=== PATIENT | female | born 1960 | race Caucasian/White ===

== ENCOUNTER 2016-04-06 05:39 | Outpatient (CLI) | payer MEDICARE, MEDICAID ==
[~2016-04-06] VITALS: Ht 157.5 cm; Wt 127.0 kg
[~2016-04-06 05:39] MED LIST: ACHD5005 PO; ALBU8.5H2 IH; ALPR0.5T7 PO; ALPR0.5T72 PO; ASP81TEC PO; CEPH500C PO; CYCL10TA9 PO; DICY10CA59 PO; DILT360C30 PO; DILT90TA PO; DIPH25TA82 PO; DOXE25CA2 PO; DULO30CA PO; ESCT10T PO; ESTR1TAB24 PO; ETAN50DI2 SQ; ETANERCEPT SQ; FAMC125T2 PO; FENO135C PO; FEXO180T84 PO; FISH1CAP15 PO; FLUC200T31 PO; FLUO1TAB PO; FLUT30CR10 TP; GABA-488 PO; GLIP10TA13 PO; HYDR-1229 PO; HYDR-700 PO; HYDR1TAB PO; HYOS0.1283 SL; INSU100C SQ; INSU100I10 SQ; INSU100I23 SQ; INSU100V6 SQ; IRON1TAB89 PO; ISM30TCR PO; LORA10TA2 PO; LOSA-35 PO; LOSA1TAB15 PO; LOSA1TAB23 PO; MECL25TA56 PO; MEDR2.5T PO; MEDR2.5T6 PO; METF-380 PO; METO-272 PO; METO-354 PO; MNTL10T PO; MTF500T PO; MULT-305 PO; MULT-909 PO; MULT1TAB82 PO; OXYC-12 PO; PGLT30T PO; PNT40TEC PO; POLY IRON 150 MG PO; POLY IRON PO; POTA99TA18 PO; POTA99TA7 PO; PRAV40TA PO; PRM25T PO; PRX20T PO; ROSU5TAB PO; SILV25CR21 TP; SIMV40TA4 PO; SULF1TAB38 PO; TICA90TA PO; URSO300C3 PO; URSODIOL PO; ZLP5T PO; ZOLP10TA5 PO; [UNRECOGNIZED DRUG - CODE] PO; [UNRECOGNIZED DRUG - CODE] TP
[2016-04-06] MEDS ORDERED: SUCR1TAB PO (15:03)
[2016-04-06] MEDS ORDERED: ESCI20TA45 PO (15:03)
[2016-04-06] MEDS ORDERED: METF1000 PO (15:03)
== END 2016-04-06 15:05 ==
LOC: PREOP 05:39
PROVIDERS: ATTEND Surgery Pediatric Surgery
DX: Z01.818 Encounter for other preprocedural examination (principal); Z12.11 Encounter for screening for malignant neoplasm of colon; D64.9 Anemia, unspecified; K21.9 Gastro-esophageal reflux disease without esophagitis; Z86.010 Personal history of colon polyps; R11.0 Nausea; K92.1 Melena

== ENCOUNTER 2016-05-18 05:39 | Outpatient (CLI) | payer MEDICARE, MEDICAID ==
[~2016-05-18] VITALS: Ht 157.5 cm; Wt 127.0 kg
[~2016-05-18 05:39] MED LIST changes: +ESCI20TA45 PO; +METF1000 PO; +SUCR1TAB PO
== END 2016-05-18 13:12 ==
LOC: PREOP 05:39
PROVIDERS: ATTEND Surgery Pediatric Surgery
DX: Z01.818 Encounter for other preprocedural examination (principal); Z12.11 Encounter for screening for malignant neoplasm of colon; Z86.010 Personal history of colon polyps; D64.9 Anemia, unspecified; K21.9 Gastro-esophageal reflux disease without esophagitis

== ENCOUNTER 2016-05-20 10:36 | Day surgery (SDC) | payer MEDICARE, MEDICAID ==
[~2016-05-20] VITALS: Ht 157.5 cm; Wt 127.0 kg
--- NOTE | 2016-05-20 10:38 | Conscious Sedation/ASA ---
Conscious Sedation Pre-Proced Time Reviewed: 10:30 ASA Class: 2 Airway Mallampati Classification: ([place] appropriate class) I. II. III, IV Lungs Heart ASA score ASA 1: a normal healthy patient ASA 2: a patient with a mild systemic disease (mid diabetes, controlled hypertension, obesity ASA 3: a patient with a severe systemic disease that limits activity (angina , COPD, prior Myocardial infarction) ASA 4: a patient with an incapacitating disease that is a constant threat to life (CHF, renal failure) ASA 5: a moribund patient not expected to survive 24 hrs. (ruptured aneurysm) ASA 6: a declared brain patient whose organs are being harvested. For emergent operations, add the letter E after the classification Grade 2 Sedation Plan: Analgesia, Amnesia, Plan communicated to team members, Discussed options with patient/fam, Discussed risks with patient/fam Note The patient is an appropriate candidate to undergo the planned procedure, sedation, and anesthesia. The patient immediately re-assessed prior to indication. LAURENT PLATA MD May 20, 2016 10:38 am
--- NOTE | 2016-05-20 10:39 | Progress Note-Pre Operative ---
Pre-Operative Progress Note H&P Reviewed The H&P was reviewed, patient examined and no changes noted. Date H&P Reviewed: May 20, 2016 Time H&P Reviewed: 10:30 Pre-Operative Diagnosis: dysphagia, GERD, hx polyp, rectal bleed LAURENT PLATA MD May 20, 2016 10:39 am
[2016-05-20] MEDS ORDERED: ACETAMINOPHEN 325 MG TABLET/CAPLET (TYLENOL) PO PRN (10:45)
[2016-05-20] MEDS ORDERED: HURRICAINE EXT TUBE (BENZOCAINE) XX PRN (10:45)
[2016-05-20] MEDS ORDERED: morphine INJ 10 MG/ML 1ML (SYR OR VIAL) IV PRN (10:45)
[2016-05-20] MEDS ORDERED: HYDROcodone/APAP 5 MG/325 MG (LORTAB) TAB PO PRN (10:45)
[2016-05-20] MEDS ORDERED: NALOXONE 0.4 MG/ML 1 ML (NARCAN) VIAL IVP PRN (10:45)
[2016-05-20] MEDS ORDERED: LIDOCAINE JELLY 2% (XYLOCAINE) 5 ML TUBE MM PRN (10:45)
[2016-05-20] MEDS ORDERED: FLUMAZENIL (ROMAZICON) 0.1 MG/ML 5 ML VIAL INJ PRN (10:45)
[2016-05-20] MEDS ORDERED: ONDANSETRON 4 MG/2 ML (SDV) Z0FRAN IV PRN (10:45)
[2016-05-20] MEDS ORDERED: NS IV 500 ML 500 ML IV PRN (11:00)
[2016-05-20] MEDS ORDERED: ISOS30TA3 PO (11:12)
[2016-05-20] MEDS ORDERED: POTA99TA21 PO (11:12)
[2016-05-20] MEDS ORDERED: USTE90DI SQ (11:12)
[2016-05-20 11:16] VITALS: BP 153/73
[2016-05-20] MEDS ORDERED: LIDOCAINE JELLY 2% (XYLOCAINE) 5 ML TUBE ONE (11:28)
[2016-05-20] MEDS: fentaNYL INJECTION 100 MCG/2 ML AMP IVP PRN ×4 (11:28→11:55)
[2016-05-20] MEDS ORDERED: fentaNYL INJECTION 100 MCG/2 ML AMP ONE ×2 (11:28)
[2016-05-20] MEDS ORDERED: MIDAZOLAM 2 MG/2 ML (VERSED) VIAL ONE ×5 (11:29)
[2016-05-20] MEDS ORDERED: HURRICAINE EXT TUBE (BENZOCAINE) ONE (11:29)
[2016-05-20] MEDS: MIDAZOLAM 2 MG/2 ML (VERSED) VIAL IVP PRN ×3 (11:33→11:50)
--- NOTE | 2016-05-20 12:24 | Progress Note-Post Operative ---
Post-Operative Progess Note Pre-Operative Diagnosis dysphagia, GERD, hx polyp, rectal bleed Post-Operative Diagnosis reflux eosphagitis(class B-C), mild schatzki ring, HH(2.5cm), moderate gastritis. mild rectosigmoid irritation. Post-Op Procedure Note Date of Procedure: May 20, 2016 Name of Procedure: EGD wtih bx. Colonoscopy with bx. Anesthesia Type CS Estimated blood loss (mL): minimal Specimen(s) collected ge jxn, antrum, rectosigmoid LAURENT PLATA MD May 20, 2016 12:24 pm
--- NOTE | 2016-05-20 12:25 | Discharge Inst-Surgical ---
D/C Lap Instructions-SHERLYN Follow Up Appt in 6 weeks Activity as tolerated High Fiber Diet 25g or more per day Avoid Alcohol, Caffeine, Spicy [place] and Acid foods. Drink 64 fluid oz or more of fluids per day. Symptoms to Report: Fever over 101 degree F, Nausea/Vomiting If any problems/questions: Contact your physician or go to Emergency Room LAURENT PLATA MD May 20, 2016 12:25 pm
[2016-05-20 12:50] VITALS: BP 160/77
[2016-05-20 13:20] VITALS: BP 145/75
[2016-05-20 13:28] VITALS: BP 145/75
--- NOTE | 2016-05-20 19:47 | PROCEDURE REPORT ---
PROCEDURE PHYSICIAN: LAURENT MORLEY DATE OF PROCEDURE: 05/20/2016 ATTENDING PRIMARY CARE PHYSICIAN: Dr. Bjorn Koenig. PREOPERATIVE DIAGNOSES: 1. Dysphagia. 2. Gastroesophageal reflux disease. 3. Crampy abdominal pain. 4. Anemia. 5. Mucus stools with blood. POSTOPERATIVE DIAGNOSES: 1. Reflux esophagitis, between class B and C with mild distal esophageal stricture and Schatzki's ring. 2. Small to moderate size hiatal hernia approximately 2.5 cm in size. 3. Moderate severity gastritis. 4. There was a mild mucosal inflammation of the rectosigmoid junction; however, this may have been due to the colonic prep. 5. There were no polyps or any neoplasms identified. 6. There were no obvious inflammatory changes. PROCEDURE: 1. EGD with biopsy and balloon dilatation. 2. Colonoscopy with biopsy. SURGEON: Dr. Morley. ANESTHESIA: Conscious sedation. ESTIMATED BLOOD LOSS: Minimal. FINDINGS: EGD: 1. Reflux esophagitis, between class B and C with a distal esophageal stricture and Schatzki's ring. 2. Small to moderate size hiatal hernia, approximately 2.5 cm in size. 3. Moderate severity gastritis. COLONOSCOPY: 1. Mild irritation of the rectosigmoid junction with no ulcerations identified. 2. The remainder of the colon was normal. 3. There were no obvious mucosal inflammatory changes to indicate any inflammatory bowel disease. DISPOSITION: The patient tolerated the procedure well. BRIEF HISTORY: Ms. Mackenzie Martin is a 55-year-old female with a long-standing history of gastroesophageal reflux disease, which has progressed to dysphasia. She reports with some foods she feel a substernal pressure sensation after taking in a food bolus and this would either come up or reduce on its own over time. She states that her symptoms have worsened. She also does have a history of all polyps detected on colonoscopy approximately 5 years ago, which were benign. She was also found to be anemic by laboratory values. She has noticed notice periods of mucousy stools with small amounts of red blood. She reports that she does have a family history of inflammatory bowel disease with her mother having Crohn's disease. The patient was brought to the endoscopy suite, laid in the left lateral decubitus position. After adequate IV pain and sedative medications and conscious sedation anesthesia, the mouthpiece was applied. The endoscope was placed in the mouth, visualizing the pharynx and hypopharyngeal region. Vocal cords, epiglottis and vallecula identified and appeared to be normal. The endoscope was gently intubated into the esophageal opening and the esophagus insufflated. The endoscope was then advanced through the first, second, and 3rd portions esophagus at the level of the GE junction, a reflux esophagitis, between class B and C identified, as well as mild Schatzki's ring and distal esophageal stricture. A biopsy was taken of this area with forceps with good visualization of good hemostasis. The endoscope was then advanced into the stomach and endoscope retroflexed visualizing a small to moderate size hiatal hernia, approximately 2.5 cm in size. There was a moderate severity gastritis. There were no ulcers, polyps or any neoplasms identified throughout the stomach. A biopsy was taken of the stomach antrum, with visualization of good hemostasis. The endoscope was then advanced through the pylorus and the first and second portions of duodenum which appeared normal. The endoscope was then slowly withdrawn. It was then decided to proceed with an esophageal dilatation. A CRE fixed guidewire balloon was placed under direct visualization of the stomach and pulled back to the area of the stricture. The balloon was then insufflated to 3 atmospheres of pressure or 18 mm in diameter with no resistance. We then proceeded to 4.5 atmospheres of pressure or 19 mm with mild resistance. We then proceeded to 6 atmospheres of pressure or 20 mm in circumference with mild resistance and left this in place for approximately 60 seconds. The balloon was desufflated and removed. There were no mucosal tears or any bleeding identified. The endoscope was withdrawn while suctioning residual air. The patient tolerated this portion of the procedure well. For her reflux esophagitis, gastritis and hiatal hernia, we will recommend the necessary lifestyle and diet accommodation including smaller, more frequent meals, avoidance of eating at night, as well as head elevation while laying supine. She also needs to avoid caffeinated beverages, spicy, greasy and acidic foods. She was already started on Protonix which she recently started. The importance of weight management and the symptoms related to hiatal hernia and reflux were also explained to the patient. Under the same conscious sedation anesthesia, we then proceeded with the colonoscopy portion of the procedure. A digital rectal examination was performed, which did not reveal any significant hemorrhoids. Normal sphincter tone was felt and there were no palpable masses. The endoscope was then intubated into the anus and the rectum gently insufflated. The endoscope was then advanced through the valves of [place] the rectum with no polyps or any neoplasms identified. At approximately the rectosigmoid junction a small amount of mucosal irritation was identified which was biopsied. There were no ulcerations identified. The endoscope was then advanced through the sigmoid colon where no diverticulosis was identified. The endoscope was then advanced through the remainder of the descending, transverse, and ascending colon to the cecum. Through these segments there were no polyps or any neoplasms, as well as no obvious mucosal inflammatory changes. The endoscope was slowly withdrawn while taking a second look and suctioning of residual air with no additional findings. We feel that her symptoms may be related to irritable bowel syndrome and we will recommend a high fiber diet with at least 25 to 30 grams of fiber per day, as well as at least 64 fluid ounces of water daily to promote soft stools on a daily basis. Job ID: [id number] Dictated Date: 05/20/2016 12:16:37 Entry Engineer Date: 05/20/2016 19:26:02 / kathy GUERRERO
== END 2016-05-20 13:30 | disposition home or self-care (01) ==
LOC: ENDO 10:36
PROVIDERS: ATTEND Surgery Pediatric Surgery
DX: Z12.11 Encounter for screening for malignant neoplasm of colon (principal); K62.1 Rectal polyp; K21.0 Gastro-esophageal reflux disease with esophagitis; K22.2 Esophageal obstruction; K44.9 Diaphragmatic hernia without obstruction or gangrene; K29.70 Gastritis, unspecified, without bleeding; D64.9 Anemia, unspecified; Z86.010 Personal history of colon polyps
CPT/HCPCS: 88305; 88342

== ENCOUNTER 2016-12-29 16:34 | Emergency (ER) | payer MEDICARE, MEDICAID ==
[~2016-12-29] VITALS: Ht 157.5 cm; Wt 127.0 kg
[~2016-12-29 16:34] MED LIST changes: +ISOS30TA3 PO; +POTA99TA21 PO; +USTE90DI SQ
[2016-12-29] MEDS ORDERED: KETOROLAC 60 MG/2 ML VIAL IM STA (17:26)
[2016-12-29] MEDS ORDERED: hydrOXYzine (VISTARIL) 25 MG CAP PO ONE (17:30)
[2016-12-29] MEDS ORDERED: TRAM50TA2 PO (17:37)
[2016-12-29] MEDS ORDERED: HYDR-700 PO (17:37)
--- NOTE | 2016-12-29 17:38 | ED Integumentary General ---
General Chief Complaint: Skin/Wound Problems Stated Complaint: LEFT ELBOW INFECTION Nursing Triage Note: patient reports L elbow cellulitis and being treated by derm in [place]. patient reports being on antibioitcs but no pain medication.patient reports 'severe' pain History of Present Illness Time seen by provider: 17:10 Initial Comments 56-year-old female reports for cellulitis to left elbow and erythema to bilateral upper extremities. She has been taking multiple antibiotics over the last 3 weeks, including Keflex, Augmentin, and she is currently on Bactrim DS. She is also applying Bactroban ointment. She is seeing a outpatient interviewing clerk in [place] for her treatment, however she has also been seen at the [facility] walk-in clinic. She reports exquisite pain and sensitivity to her skin, she has used Flexeril, hydrocodone, and Xanax to help with the symptoms. She reports they mildly control deep pruritus and pain. She currently reports her pain to be 8/ 10. Timing/Duration: getting worse, intermittent Severity: moderate Location: extremities (bilateral upper) Possible Cause: no cause identified Associated Symptoms: change in skin texture, No fever, No flushing, paresthesia , tingling Allergies and Home Medications Allergies Coded Allergies: No Known Drug Allergies (Verified , 05/20/16) Home Medications Albuterol 8.5 Gm Hfa.aer.ad, 2 PUFF IH Q4 -6H PRN for SHORTNESS OF BREATH, ( Reported) Aspirin 81 Mg Tabec, 81 MG PO DAILY@1200, (Reported) Cyclobenzaprine Hcl 10 Mg Tablet, 10 MG PO BID PRN for MUSCLE SPASMS, (Reported) Diltiazem Hcl 360 Mg Capsule.sa, 360 MG PO HS, (Reported) Doxepin Hcl 25 Mg Capsule, 25 MG PO BID, (Reported) Duloxetine Hcl 30 Mg Capsule.dr, 30 MG PO BID, (Reported) Escitalopram Oxalate 20 Mg Tablet, 20 MG PO DAILY@1400, (Reported) Fexofenadine Hcl 180 Mg Tablet, 180 MG PO DAILY, (Reported) Fish Oil/Dha/Epa 1 Each Capsule, 1,200 MG PO BID, (Reported) Gabapentin 300 Mg Capsule, 300 MG PO HS, (Reported) Hydroxyzine HCl 25 Mg Tablet, 25 MG PO Q8H, #15 Ref 0 Prescribed by: ZANE OTERO on 12/29/16 1737 Hyoscyamine Sulfate 0.125 Mg Tab.subl, 0.125 MG SL QID PRN for ABDOMINAL PAIN, ( Reported) Isosorbide Mononitrate 30 Mg Tab.er.24h, 30 MG PO DAILY, (Reported) Losartan/Hydrochlorothiazide 1 Tab Tablet, 1 TAB PO DAILY, (Reported) Metformin HCl 1,000 Mg Tablet, 1,000 MG PO BID, (Reported) Metoprolol Succinate 50 Mg Tab.sr.24h, 50 MG PO DAILY@1200, (Reported) Multivitamins-Min/Fa/Ginkgo 1 Each Tablet, 1 TAB PO DAILY, (Reported) Pantoprazole Sodium 40 Mg Tablet.dr, 40 MG PO BIDAC, (Reported) Potassium Gluconate 99 Mg Tablet, 99 MG PO DAILY, (Reported) Rosuvastatin Calcium 5 Mg Tablet, 5 MG PO DAILY@1200, (Reported) Silver Sulfadiazine 25 Gm Cream..g., TP DAILY PRN PRN for RASH, (Reported) Talc/Cellulos/Chloroxy/Aldioxa 71 Gm Powder, TP DAILY PRN for RASH, (Reported) Tramadol HCl 50 Mg Tablet, 50 MG PO Q8H, #15 Ref 0 Prescribed by: ZANE OTERO on 12/29/16 1737 Ursodiol 300 Mg Capsule, 300 MG PO QID, (Reported) Ustekinumab 90 Mg/1 Ml Syringe, 90 MG SQ WEEK, (Reported) Constitutional: no symptoms reported, see HPI Skin: see HPI, change in color, dryness, rash All Other Systems Reviewed Negative Unless Noted: Yes Past Dfdurvp-Cplwph-Prjwjc Hx Patient Social History Alcohol Use: Denies Use Recreational Drug Use: No Smoking Status: Never a Smoker Recent Foreign Travel: No Contact w/Someone Who Travel: No Recent Infectious Disease Expo: No Recent Hopitalizations: No Physical Abuse: No Sexual Abuse: No Immunizations Up To Date Tetanus Booster (TDap): Unknown Date of Pneumonia Vaccine: Aug 31, 2007 Date of Influenza Vaccine: Nov 30, 2013 Seasonal Allergies Seasonal Allergies: Yes Surgeries History of Surgeries: Yes (HERNIA REPAIR X3) Surgeries: Abdominal, Cardiac, Coronary Stent, Gallbladder Respiratory History of Respiratory Disorde: Yes Respiratory Disorders: Sleep Apnea Currently Using CPAP: Yes Cardiovascular History of Cardiac Disorders: Yes (stent x1) Cardiac Disorders: Chronic Edema/Swelling, Coronary Artery Disease, Hypertension Neurological History of Neurological Disord: No Reproductive System Hx Reproductive Disorders: No Sexually Transmitted Disease: No Genitourinary Genitourinary Disorders: Kidney Infection Gastrointestinal History of Gastrointestinal Di: Yes (nausea) Gastrointestinal Disorders: Gastroesophageal Reflux, Polyps Musculoskeletal History of Musculoskeletal Dis: Yes Musculoskeletal Disorders: Arthritis Endocrine History of Endocrine Disorders: Yes (nodules on thyroid) Endocrine Disorders: Diabetes, Insulin dep Cancer History of Cancer: No Psychosocial History of Psychiatric Problem: Yes Behavioral Health Disorders: Anxiety Suicide Risk Score: 0 Integumentary History of Skin or Integumenta: No Blood Transfusions History of Blood Disorders: Yes (anemia) Reviewed Nursing Assessment Reviewed/Agree w Nursing PMH: Yes Physical Exam Vital Signs Vital Sign - Last 12Hours 12/29/16 16:50 Temp 98.4 Pulse 88 Resp 18 B/P (MAP) 150/90 Pulse Ox 98 Capillary Refill : Less Than 3 Seconds General Appearance: WD/WN, no apparent distress Neck: non-tender, full range of motion, supple, No lymphadenopathy (R), No lymphadenopathy (L) Cardiovascular: normal peripheral pulses, regular rate, rhythm Respiratory: chest non-tender, lungs clear, normal breath sounds Extremities: normal range of motion, normal capillary refill Neurologic/Psychiatric: no motor/sensory deficits, alert, normal mood/affect, oriented x 3, other (hypersensitivity bilateral upper extremities.) Skin Problem Location: upper extremities (bilateral forearms), other (left elbow with trace erythema and no olecranon bursitis, warmth, drainage, or induration noted.) Skin Problem Character: erythema, scales, urticarial Lymphatic: no adenopathy (axillary or epitrochlear) Progress/Results/Core Measures Results/Orders My Orders Orders - ZANE OTERO Ketorolac Injection (Toradol Injection) (12/29/16 17:26) Hydroxyzine Oral (Vistaril Capsule) (12/29/16 17:30) Medications Given in ED Current Medications Medications Dose Ordered Sig/Igor Route Start Time Stop Time Status Last Admin Dose Admin Hydroxyzine Pamoate 25 mg ONCE ONCE PO 12/29/16 17:30 12/29/16 17:31 DC 12/29/16 17:42 25 MG Vital Signs/I&O Vital Sign - Last 12Hours 12/29/16 12/29/16 16:50 17:45 Temp 98.4 98.4 Pulse 88 88 Resp 18 18 B/P (MAP) 150/90 Pulse Ox 98 98 Blood Pressure Mean: 110 Progress Note : Time: 17:10 Progress Note Initial evaluation reviewed, discussed at length with the patient the importance of her not using the mixture of medication she is taking. She reports she no longer has any Flexeril, Xanax, or Vicodin. Encouraged she follow -up with the outpatient interviewing clerk in [place]. Recommended she continue taking the Bactrim DS, as she fills the cellulitis is improving. Discussed alternatives to help with the itching, including Aveeno soaks, hydroxyzine and cool wraps. She verbalized understanding. Also discussed that she is diabetic and some of her symptoms could be related to her neuropathy. She denies having symptoms like this prior to the rash and cellulitis. Departure Impression Impression: Primary Impression: Cellulitis Qualified Codes: L03.119 - Cellulitis of unspecified part of limb Additional Impression: Pruritus Disposition: HOME, SELF-CARE Condition: Stable Departure-Patient Inst. Decision time for Depature: 17:40 Referrals: SARAH KING MD (PCP/Family) Primary Care Physician Patient Instructions: Cellulitis (Skin Infection), Adult (DC), Itchy Skin Add. Discharge Instructions: Continue taking Bactrim as prescribed and follow-up with dermatology for scheduled appointment next week Use Aveeno oatmeal soaks to bilateral arms. Take tramadol as needed for pain not relieved by Tylenol And use hydroxyzine for itching. Tylenol 650 mg every 6-8 hours as needed for pain. Take Aleve 2 tablets twice daily with food. Return to emergency department for temperature greater than 101, increased redness to rash or new problems. All discharge instructions reviewed with patient and/or family. Voiced understanding. Scripts Hydroxyzine HCl (Hydroxyzine HCl) 25 Mg Tablet 25 MG PO Q8H, #15 TAB 0 Refills Prov: ZANE OTERO 12/29/16 Tramadol HCl (Tramadol HCl) 50 Mg Tablet 50 MG PO Q8H, #15 TAB 0 Refills Prov: ZANE OTERO 12/29/16 ZANE OTERO Dec 29, 2016 17:38
[2016-12-29 17:45] VITALS: BP 150/90
== END 2016-12-29 17:45 | disposition home or self-care (01) ==
LOC: EDUNIT# 16:34 → ER 16:35
DX: L03.114 Cellulitis of left upper limb (principal); L29.9 Pruritus, unspecified; F41.9 Anxiety disorder, unspecified; E11.9 Type 2 diabetes mellitus without complications; D64.9 Anemia, unspecified; I25.10 Atherosclerotic heart disease of native coronary artery without angina pectoris; I10 Essential (primary) hypertension; K21.9 Gastro-esophageal reflux disease without esophagitis; Z95.1 Presence of aortocoronary bypass graft; Z98.890 Other specified postprocedural states; Z79.84 Long term (current) use of oral hypoglycemic drugs; Z79.82 Long term (current) use of aspirin
CPT/HCPCS: 96372; 99284

== ENCOUNTER 2017-01-21 18:20 | Emergency (ER) | payer MEDICARE, MEDICAID ==
[~2017-01-21] VITALS: Ht 152.4 cm; Wt 136.1 kg
[~2017-01-21 18:20] MED LIST changes: +TRAM50TA2 PO
--- OUTSIDE RECORDS SUMMARY | 2017-01-21 18:34 | XMS REPORT ---
Author Author KJ LOPEZ Organization [facility] Address [address] [place] [address] Care Team Providers Care Farm Facility Manager Name Role Phone KJ LOPEZ Unavailable PROBLEMS Unknown Problems ALLERGIES Substance Reaction Event Type Date Status Latex Unknown Drug Allergy Mar, Active SOCIAL HISTORY No smoking Hx information available PLAN OF CARE Activity Details Follow Up prn Reason:prophy/rafael VITAL SIGNS Blood pressure systolic 128 mmHg 2016-03-21 Blood pressure diastolic 63 mmHg 2016-03-21 MEDICATIONS Medication Instructions Dosage Frequency Start Date End Date Duration Status Hyzaar Active RESULTS No Results PROCEDURES Procedure Date Ordered Related Diagnosis Body Site LTD ORAL EVALUATION - PROBLEM FOCUS Mar 21, 2016 INTRAORL-PERIAPICAL 1 FILM [id number] Mar 21, 2016 BITEWINGS - TWO FILMS Mar 21, 2016 INTRAORL-PERIAPICAL EA ADD FILM Mar 21, 2016 IMMUNIZATIONS No Known Immunizations
--- OUTSIDE RECORDS SUMMARY | 2017-01-21 18:34 | XMS REPORT ---
Author Author YOLI THORNTON Organization Unknown Address Unknown Phone Unavailable Care Team Providers Care Senior Storage Engineer Name Role Phone YOLI THORNTON Unavailable Unavailable PROBLEMS Unknown Problems ALLERGIES Substance Reaction Event Type Date Status Latex Unknown Drug Allergy Mar, Active SOCIAL HISTORY No smoking Hx information available PLAN OF CARE Activity Details Follow Up VANDANA Reason: VITAL SIGNS Heart Rate 89 bpm 2016-03-24 Blood pressure systolic 143 mmHg 2016-03-24 Blood pressure diastolic 65 mmHg 2016-03-24 MEDICATIONS Medication Instructions Dosage Frequency Start Date End Date Duration Status Diltiazem CD 300 MG Orally Once a day 1 capsule 24h Active Enbrel 50 MG/ML 1 ml Active ProAir HFA 108 (90 Base) MCG/ACT Inhalation every 4 hrs 2 puffs as needed 4h Active Mariluz Active Isosorbide Dinitrate 30 MG Orally Twice a day 1 tablet 12h Active Singulair 10 MG Orally Once a day 1 tablet in the evening 24h Active Metformin HCl 1000 MG Orally Twice a day 1 tablet with meals 12h Active Bentyl 10 MG Active Losartan Potassium-HCTZ 100-25 MG Orally Once a day 1 tablet 24h Active Crestor 5 MG Orally Once a day 1 tablet 24h Active Lantus SoloStar 100 UNIT/ML Active Flexeril 10 MG Orally Three times a day 1 tablet 8h Active Humalog 100 UNIT/ML Active Fish Oil 1000 MG Orally Once a day 1 capsule 24h Active Estradiol 1 MG Orally Daily for Three Weeks, 1 Week off 1 tablet Active Cymbalta 30 MG Orally Twice a day 1 capsule 12h Active Doxepin HCl 25 MG Orally Once a day 1 capsule at bedtime 24h Active Hydrocodone-Ibuprofen 7.5-200 MG Orally every 6 hrs 1 tablet as needed 6h Active Metoprolol Succinate ER 50 MG Orally Once a day 1 tablet 24h Active MedroxyPROGESTERone Acetate 2.5 MG Orally Once a day 2 tablets 24h Active Aspirin 81 MG Orally Once a day 1 tablet 24h Active Loratadine 10 MG Orally Once a day 1 tablet 24h Active Protonix 40 MG Orally Once a day 1 tablet 24h Active Gabapentin 300 MG Orally Three times a day 1 capsule 8h Active Lexapro 20 MG Orally Once a day 0.5 tablet 24h Active RESULTS No Results PROCEDURES Procedure Date Ordered Related Diagnosis Body Site BITEWINGS - TWO FILMS Mar 24, 2016 PROPHYLAXIS - ADULT Mar 24, 2016 TOPICAL FLUORIDE VARNISH Mar 24, 2016 IMMUNIZATIONS No Known Immunizations
[2017-01-21 19:13] LABS: BASOPHILS % (AUTO) 0 % (0-10); EOSINOPHILS # (AUTO) 2.1 10^3/uL (0.0-0.3); EOSINOPHILS % (AUTO) 19 % (0-10); LYMPHOCYTES # (AUTO) 3.2 X 10^3 (1.0-4.0); LYMPHOCYTES % (AUTO) 28 % (12-44); MEAN CORPUSCULAR HEMOGLOBIN 27 PG (25-34); MEAN CORPUSCULAR HGB CONC 31 G/DL (32-36); MEAN CORPUSCULAR VOLUME 85 FL (80-99); MEAN PLATELET VOLUME 9.7 FL (7.4-10.4); MONOCYTES # (AUTO) 0.6 X 10^3 (0.0-1.0); MONOCYTES % (AUTO) 5 % (0-12); NEUTROPHILS # (AUTO) 5.3 X 10^3 (1.8-7.8); NEUTROPHILS % (AUTO) 47 % (42-75); PLATELET COUNT 389 10^3/uL (130-400); RED BLOOD COUNT 4.71 10^6/uL (4.35-5.85); RED CELL DISTRIBUTION WIDTH 17.3 % (10.0-14.5); WHITE BLOOD COUNT 11.2 10^3/uL (4.3-11.0)
[2017-01-21 19:22] LABS: INR 0.9 (0.8-1.4); PROTHROMBIN TIME PATIENT 12.3 SEC (12.2-14.7)
[2017-01-21 19:28] LABS: ANISOCYTOSIS MODERATE; BAND NEUTROPHILS 0 %; BASOPHILS % (MANUAL) 0 %; EOSINOPHILS % (MANUAL) 24 %; LYMPHOCYTES % (MANUAL) 24 %; NEUTROPHILS % (MANUAL) 40 %; POIKILOCYTOSIS MODERATE; REACTIVE LYMPHOCYTES 8 %
[2017-01-21 19:29] LABS: STOMATOCYTES MODERATE
[2017-01-21 19:32] LABS: ALANINE AMINOTRANSFERASE 19 U/L (0-55); ALBUMIN 3.6 GM/DL (3.2-4.5); ANION GAP 10 MMOL/L (5-14); ASPARTATE AMINO TRANSFERASE 16 U/L (5-34); BILIRUBIN,TOTAL 0.3 MG/DL (0.1-1.0); BLOOD UREA NITROGEN 14 MG/DL (7-18); BUN/CREATININE RATIO 20; CALCIUM 9.4 MG/DL (8.5-10.1); CARBON DIOXIDE 29 MMOL/L (21-32); CHLORIDE 100 MMOL/L (98-107); CREATININE SERUM 0.71 MG/DL (0.60-1.30); GFR ESTIMATED > 60; GLUCOSE 75 MG/DL (70-105); MAGNESIUM 1.9 MG/DL (1.8-2.4); SODIUM 139 MMOL/L (135-145); TOTAL PROTEIN 6.6 GM/DL (6.4-8.2)
--- NOTE | 2017-01-21 19:35 | Diagnostic Imaging Report ---
EXAM: CHEST 1 VIEW, AP/PA ONLY INDICATION: Chest pain. COMPARISON: Chest radiograph 10/07/2015. FINDINGS: Normal heart size and pulmonary vascularity. No focal pulmonary opacity, pleural effusion or pneumothorax. Osseous structures are unremarkable. No significant change. IMPRESSION: No acute cardiopulmonary findings. Dictated by: Dictated on workstation # [id number]
[2017-01-21 19:39] LABS: MYOGLOBIN SERUM 20.1 NG/ML (10.0-92.0)
--- NOTE | 2017-01-21 19:45 | ED Integumentary General ---
General Chief Complaint: Skin/Wound Problems Stated Complaint: L ARM SWELLING,CHEST PAIN Nursing Triage Note: AMB TO ROOM HAS PSORIASIS AND HAS HAD PROBLEMS WITH IT FOR 2 MONTHS WAS SEEN 3 WEEKS AGO IN ER HAD NOT GOTTEN ANY BETTR. History of Present Illness Time seen by provider: 18:45 Initial Comments 56 -year-old female patient has psoriasis, over the last several months she's been having intermittent flareups. She is trying a multitude of different creams, ointments and medications. She sees Dr. 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 She is using Bactrim ointment and she recently finished a prescription of clindamycin. Timing/Duration: getting worse, intermittent Severity: moderate Location: torso, hands, extremities, generalized Modifying Factors: improves with topical steriods Associated Symptoms: change in skin texture, edema, flushing, rash Allergies and Home Medications Allergies Coded Allergies: No Known Drug Allergies (Verified , 05/20/16) Home Medications Albuterol 8.5 Gm Hfa.aer.ad, 2 PUFF IH Q4 -6H PRN for SHORTNESS OF BREATH, ( Reported) Aspirin 81 Mg Tabec, 81 MG PO DAILY@1200, (Reported) Cyclobenzaprine Hcl 10 Mg Tablet, 10 MG PO BID PRN for MUSCLE SPASMS, (Reported) Diltiazem Hcl 360 Mg Capsule.sa, 360 MG PO HS, (Reported) Doxepin Hcl 25 Mg Capsule, 25 MG PO BID, (Reported) Duloxetine Hcl 30 Mg Capsule.dr, 30 MG PO BID, (Reported) Escitalopram Oxalate 20 Mg Tablet, 20 MG PO DAILY@1400, (Reported) Fexofenadine Hcl 180 Mg Tablet, 180 MG PO DAILY, (Reported) Fish Oil/Dha/Epa 1 Each Capsule, 1,200 MG PO BID, (Reported) Gabapentin 300 Mg Capsule, 300 MG PO HS, (Reported) Hydroxyzine HCl 25 Mg Tablet, 25 MG PO Q8H, #15 Ref 0 Prescribed by: ZANE OTERO on 12/29/16 173 Hyoscyamine Sulfate 0.125 Mg Tab.subl, 0.125 MG SL QID PRN for ABDOMINAL PAIN, ( Reported) Isosorbide Mononitrate 30 Mg Tab.er.24h, 30 MG PO DAILY, (Reported) Losartan/Hydrochlorothiazide 1 Tab Tablet, 1 TAB PO DAILY, (Reported) Metformin HCl 1,000 Mg Tablet, 1,000 MG PO BID, (Reported) Metoprolol Succinate 50 Mg Tab.sr.24h, 50 MG PO DAILY@1200, (Reported) Multivitamins-Min/Fa/Ginkgo 1 Each Tablet, 1 TAB PO DAILY, (Reported) Pantoprazole Sodium 40 Mg Tablet.dr, 40 MG PO BIDAC, (Reported) Potassium Gluconate 99 Mg Tablet, 99 MG PO DAILY, (Reported) Rosuvastatin Calcium 5 Mg Tablet, 5 MG PO DAILY@1200, (Reported) Silver Sulfadiazine 25 Gm Cream..g., TP DAILY PRN PRN for RASH, (Reported) Talc/Cellulos/Chloroxy/Aldioxa 71 Gm Powder, TP DAILY PRN for RASH, (Reported) Tramadol HCl 50 Mg Tablet, 50 MG PO Q8H, #15 Ref 0 Prescribed by: ZANE OTERO on 12/29/16 1737 Ursodiol 300 Mg Capsule, 300 MG PO QID, (Reported) Ustekinumab 90 Mg/1 Ml Syringe, 90 MG SQ WEEK, (Reported) Constitutional: no symptoms reported, see HPI Skin: see HPI, change in color, dryness, pruritus, rash All Other Systems Reviewed Negative Unless Noted: Yes Past Kaagqul-Nxkmjg-Qfbgne Hx Patient Social History Alcohol Use: Denies Use Recreational Drug Use: No Recent Foreign Travel: No Contact w/Someone Who Travel: No Recent Infectious Disease Expo: No Recent Hopitalizations: No Immunizations Up To Date Tetanus Booster (TDap): Unknown Date of Pneumonia Vaccine: Aug 31, 2007 Date of Influenza Vaccine: Nov 30, 2013 Seasonal Allergies Seasonal Allergies: Yes Surgeries History of Surgeries: Yes (HERNIA REPAIR X3) Surgeries: Abdominal, Cardiac, Coronary Stent, Gallbladder Respiratory History of Respiratory Disorde: Yes Respiratory Disorders: Sleep Apnea Currently Using CPAP: Yes Cardiovascular History of Cardiac Disorders: Yes (stent x1) Cardiac Disorders: Chronic Edema/Swelling, Coronary Artery Disease, Hypertension Neurological History of Neurological Disord: No Reproductive System Hx Reproductive Disorders: No Sexually Transmitted Disease: No Genitourinary Genitourinary Disorders: Kidney Infection Gastrointestinal History of Gastrointestinal Di: Yes (nausea) Gastrointestinal Disorders: Gastroesophageal Reflux, Polyps Musculoskeletal History of Musculoskeletal Dis: Yes Musculoskeletal Disorders: Arthritis Endocrine History of Endocrine Disorders: Yes (nodules on thyroid) Endocrine Disorders: Diabetes, Insulin dep Cancer History of Cancer: No Psychosocial History of Psychiatric Problem: Yes Behavioral Health Disorders: Anxiety Integumentary History of Skin or Integumenta: No Blood Transfusions History of Blood Disorders: Yes (anemia) Reviewed Nursing Assessment Reviewed/Agree w Nursing PMH: Yes Physical Exam Vital Signs Vital Sign - Last 12Hours 01/21/17 01/21/17 18:30 20:28 Temp 98.3 Pulse 86 Resp 18 Pulse Ox 92 O2 Delivery Room Air Capillary Refill : Less Than 3 Seconds General Appearance: WD/WN, no apparent distress Cardiovascular: normal peripheral pulses, regular rate, rhythm Respiratory: chest non-tender, lungs clear Neurologic/Psychiatric: no motor/sensory deficits, alert, normal mood/affect, oriented x 3 Skin Problem Location: generalized Skin Problem Character: erythema, lesion, patchy, scales, swelling (left arm), thickening Lymphatic: no adenopathy Progress/Results/Core Measures Results/Orders Lab Results Laboratory Tests Test 01/21/17 19:05 Range/Units White Blood Count 11.2 H 4.3-11.0 10^3/uL Red Blood Count 4.71 4.35-5.85 10^6/uL Hemoglobin 12.5 11.5-16.0 G/DL Hematocrit 40 35-52 % Mean Corpuscular Volume 85 80-99 FL Mean Corpuscular Hemoglobin 27 25-34 PG Mean Corpuscular Hemoglobin Concent 31 L 32-36 G/DL Red Cell Distribution Width 17.3 H 10.0-14.5 % Platelet Count 389 130-400 10^3/uL Mean Platelet Volume 9.7 7.4-10.4 FL Neutrophils (%) (Auto) 47 42-75 % Lymphocytes (%) (Auto) 28 12-44 % Monocytes (%) (Auto) 5 0-12 % Eosinophils (%) (Auto) 19 H 0-10 % Basophils (%) (Auto) 0 0-10 % Neutrophils # (Auto) 5.3 1.8-7.8 X 10^3 Lymphocytes # (Auto) 3.2 1.0-4.0 X 10^3 Monocytes # (Auto) 0.6 0.0-1.0 X 10^3 Eosinophils # (Auto) 2.1 H 0.0-0.3 10^3/uL Basophils # (Auto) 0.0 0.0-0.1 10^3/uL Neutrophils % (Manual) 40 % Lymphocytes % (Manual) 24 % Monocytes % (Manual) 4 % Eosinophils % (Manual) 24 % Basophils % (Manual) 0 % Band Neutrophils 0 % Reactive Lymphocytes 8 % Toxic Granulation 1+ Poikilocytosis MODERATE Anisocytosis MODERATE Stomatocytes MODERATE Erythrocyte Sedimentation Rate 29 0-30 MM/HR Prothrombin Time 12.3 12.2-14.7 SEC INR Comment 0.9 0.8-1.4 Activated Partial Thromboplast Time 29 24-35 SEC Sodium Level 139 135-145 MMOL/L Potassium Level 4.0 3.6-5.0 MMOL/L Chloride Level 100 98-107 MMOL/L Carbon Dioxide Level 29 21-32 MMOL/L Anion Gap 10 5-14 MMOL/L Blood Urea Nitrogen 14 7-18 MG/DL Creatinine 0.71 0.60-1.30 MG/DL Estimat Glomerular Filtration Rate > 60 BUN/Creatinine Ratio 20 Glucose Level 75 70-105 MG/DL Calcium Level 9.4 8.5-10.1 MG/DL Magnesium Level 1.9 1.8-2.4 MG/DL Total Bilirubin 0.3 0.1-1.0 MG/DL Aspartate Amino Transf (AST/SGOT) 16 5-34 U/L Alanine Aminotransferase (ALT/SGPT) 19 0-55 U/L Alkaline Phosphatase 89 40-136 U/L Myoglobin 20.1 10.0-92.0 NG/ML Troponin I < 0.30 <0.30 NG/ML Total Protein 6.6 6.4-8.2 GM/DL Albumin 3.6 3.2-4.5 GM/DL My Orders Orders - ZANE OTERO Ekg Tracing (01/21/17 18:50) Cbc With Automated Diff (01/21/17 18:57) Magnesium (01/21/17 18:57) Chest 1 View, Ap/Pa Only (01/21/17 18:57) Cardiac Profile 1 (01/21/17 18:57) Comprehensive Metabolic Panel (01/21/17 18:57) Myoglobin Serum (01/21/17 18:57) Protime With Inr (01/21/17 18:57) Partial Thromboplastin Time (01/21/17 18:57) Saline Lock/Iv-Start (01/21/17 18:57) Manual Differential (01/21/17 19:05) Erythrocyte Sedimentation Rate (01/21/17 19:32) Vital Signs/I&O Vital Sign - Last 12Hours 01/21/17 01/21/17 18:30 20:28 Temp 98.3 98.3 Pulse 86 72 Resp 18 21 B/P (MAP) Pulse Ox 92 O2 Delivery Room Air Progress Note : Time: 18:45 Progress Note Initial evaluation completed, recommended cardiac workup with EKG, labs, chest x -ray. Will continue to monitor and reevaluate. 1919 all labs essentially normal, WBC 11.2 and ESR 29. 2000 discussed at length with the patient the importance of having one provider prescribing her medication for psoriasis, she should avoid trying different creams and ointments that she has available. If the current prescribed treatment is not being effective, recommended she follow-up with Dr. Bush for a quicker referral to dermatology. Discharge planning reviewed with her, all questions answered and return precautions discussed. ECG Initial ECG Impression Date: Jan 21, 2017 Initial ECG Impression Time: 18:51 Initial ECG Rate: 77 Initial ECG Rhythm: Normal Sinus Initial ECG Intervals: Normal Initial ECG Intervals ME 200, QRS D 98, QT 416, QTc 471. Baker P 53, QRS -15, T 47. Initial ECG Impression: Normal Initial ECG Comparisson: No Previous ECG Available Comment Reviewed with Dr. Juarez, concurred with interpretation. Diagnostic Imaging Diagonstic Imaging: Xray Plain Films/CT/US/NM/MRI: chest Comments NAME: LAN OCAMPO [facility] REC#: [id number] PT STATUS: REG ER : 1960 PHYSICIAN: ZANE OTERO ADMIT DATE: 01/21/17/ER Draft Date of Exam:01/21/17 CHEST 1 VIEW, AP/PA ONLY EXAM: CHEST 1 VIEW, AP/PA ONLY INDICATION: Chest pain. COMPARISON: Chest radiograph 10/07/2015. FINDINGS: Normal heart size and pulmonary vascularity. No focal pulmonary opacity, pleural effusion or pneumothorax. Osseous structures are unremarkable. No significant change. IMPRESSION: No acute cardiopulmonary findings. Dictated on workstation # [id number] Dict: 01/21/171928 Trans: 01/21/171933 [id number] Interpreted by: MAICOL PETERS MD Electronically signed by: Reviewed: Reviewed by Me Departure Impression Impression: Primary Impression: Erythrodermic psoriasis Additional Impression: Cellulitis of left arm Disposition: HOME, SELF-CARE Condition: Stable Departure-Patient Inst. Decision time for Depature: 19:45 Referrals: DENNISE BUSH MD (PCP/Family) Primary Care Physician Patient Instructions: Cellulitis (Skin Infection), Adult (DC), Psoriasis (DC) Add. Discharge Instructions: Apply Betamethasone Cream every morning and Calcipotriene in the evening. Use only these to medications and no additional medications unless prescribed by Dr. Bush. Apply Aquafor throughout day, as needed. Warm moist soaks, as needed. Take antibiotic as prescribed. Follow up with Dr. Bush early next week for dermatology referral. Return to emergency department if symptoms become worse, temperature greater than 101, or new problems. All discharge instructions reviewed with patient and/or family. Voiced understanding. ZANE OTERO Jan 21, 2017 19:45
[2017-01-21 20:28] VITALS: BP 133/60
== END 2017-01-21 20:27 | disposition home or self-care (01) ==
LOC: EDUNIT# 18:20 → ER 18:22
DX: L40.8 Other psoriasis (principal); L03.114 Cellulitis of left upper limb; G47.30 Sleep apnea, unspecified; I25.10 Atherosclerotic heart disease of native coronary artery without angina pectoris; I10 Essential (primary) hypertension; M19.90 Unspecified osteoarthritis, unspecified site; K21.9 Gastro-esophageal reflux disease without esophagitis; E11.9 Type 2 diabetes mellitus without complications; F41.9 Anxiety disorder, unspecified; Z86.010 Personal history of colon polyps; Z87.448 Personal history of other diseases of urinary system; Z79.82 Long term (current) use of aspirin; Z79.84 Long term (current) use of oral hypoglycemic drugs; Z95.5 Presence of coronary angioplasty implant and graft; Z87.19 Personal history of other diseases of the digestive system
CPT/HCPCS: 36415; 71010; 80053; 83735; 83874; 84484; 85007; 85027; 85610; 85652; 85730; 93005

== ENCOUNTER → 2017-02-28 | Outpatient (CLI) | payer MEDICARE, MEDICAID | LOC: CARD 10:54 | PROVIDERS: ATTEND Physician Assistant | DX: I25.10 Atherosclerotic heart disease of native coronary artery without angina pectoris (principal); I10 Essential (primary) hypertension; E78.2 Mixed hyperlipidemia; R07.89 Other chest pain | CPT/HCPCS: 93306 ==

== ENCOUNTER → 2017-10-20 | Outpatient (CLI) | payer MEDICARE, MEDICAID ==
[~2017-10-20] MED LIST changes: -METF1000 PO; +METF10002 PO
--- NOTE | 2017-10-20 14:36 | Diagnostic Imaging Report ---
PROCEDURE: US Non-ob pelvis comp/trans. TECHNIQUE: Multiple realtime grayscale images were obtained of the pelvis in various projections endovaginally. Transabdominal imaging was also performed. INDICATION: Pelvic pain and dysuria. Uterus measures 4.7 x 3.4 x 2.8 cm. Endometrium is 3 mm in thickness. No uterine mass is seen. The ovaries cannot be visualized. No adnexal mass or free fluid is seen. IMPRESSION: Nonvisualized ovaries. The study is otherwise unremarkable. Dictated by: Dictated on workstation # [id number]
== END ==
LOC: RAD 12:50
PROVIDERS: ATTEND Obstetrics & Gynecology
DX: R10.2 Pelvic and perineal pain (principal); R30.0 Dysuria; Z68.42 Body mass index [BMI] 45.0-49.9, adult
CPT/HCPCS: 76830; 76856

== ENCOUNTER → 2017-12-05 | Outpatient (CLI) | payer MEDICARE, MEDICAID ==
[~2017-12-05] MED LIST changes: +GUAI1TAB22 PO; +METF-399 PO; -METF10002 PO; -[UNRECOGNIZED DRUG - CODE] PO
[2017-12-05 13:05] LABS: BUN/CREATININE RATIO 17; GFR ESTIMATED > 60
== END ==
LOC: LAB 12:21
PROVIDERS: ATTEND Internal Medicine Gastroenterology
DX: R07.9 Chest pain, unspecified (principal); R11.0 Nausea; R10.11 Right upper quadrant pain; Z98.84 Bariatric surgery status
CPT/HCPCS: 36415; 82565; 84520; 85379; 85652; 86141

== ENCOUNTER → 2017-12-06 | Outpatient (CLI) | payer MEDICARE, MEDICAID ==
--- NOTE | 2017-12-06 11:43 | Diagnostic Imaging Report ---
PROCEDURE: CT abdomen and pelvis without contrast. TECHNIQUE: Multiple contiguous axial images were obtained through the abdomen and pelvis without the use of intravenous contrast. INDICATION: Right upper quadrant abdominal pain. Nausea. History of previous partial gastrectomy. COMPARISON: 05/12/2014. FINDINGS: Included portions of the lung bases are clear. CT ABDOMEN: Normal appendix is identified. Small bowel loops are nondistended. Postsurgical changes of previous partial gastrectomy are noted. The kidneys, adrenal glands, spleen, pancreas, and liver have an unremarkable noncontrast CT appearance. There is no loculated fluid collection, free fluid, nor free air within the abdomen. No abnormal mesenteric or retroperitoneal adenopathy is seen. There is mild calcified aortic and arterial atherosclerosis. Bony structures show no acute abnormalities. CT PELVIS: Small amount of gas is noted within the urinary bladder. There is no loculated fluid collection, free fluid, nor free air within the pelvis. No abnormal lymph nodes are seen. Bony structures show no acute abnormalities. IMPRESSION: 1. Small amount of gas within the urinary bladder. Correlation with recent instrumentation is recommended. Alternatively, findings may also be seen with gas-forming cystitis. 2. No other acute abnormality is seen within the abdomen or pelvis. Dictated by: Dictated on workstation # [id number]
== END ==
LOC: RAD 11:01
PROVIDERS: ATTEND Internal Medicine Gastroenterology
DX: R10.11 Right upper quadrant pain (principal); R07.9 Chest pain, unspecified; R11.0 Nausea; R10.31 Right lower quadrant pain; Z98.84 Bariatric surgery status
CPT/HCPCS: 74176

== ENCOUNTER 2018-04-18 20:44 | Emergency (ER) | payer MEDICARE, MEDICAID ==
[~2018-04-18] VITALS: Ht 154.9 cm; Wt 104.3 kg
--- NOTE | 2018-04-18 21:15 | NUR ---
ATTEMPTED TO CALL PT TO TRIAGE ROOM. PT IS IN RESTROOM, WILL TRY AGAIN IN A FEW MINUTES.
[2018-04-18] MEDS ORDERED: NS IV 1000 ML 1,000 ML IV SCH (22:57)
[2018-04-18 23:03] LABS: BASOPHILS % (AUTO) 0 % (0-10); EOSINOPHILS # (AUTO) 0.5 10^3/uL (0.0-0.3); EOSINOPHILS % (AUTO) 4 % (0-10); HEMATOCRIT 38 % (35-52); HEMOGLOBIN 12.3 G/DL (11.5-16.0); LYMPHOCYTES # (AUTO) 4.5 X 10^3 (1.0-4.0); LYMPHOCYTES % (AUTO) 39 % (12-44); MEAN CORPUSCULAR HEMOGLOBIN 28 PG (25-34); MEAN CORPUSCULAR HGB CONC 32 G/DL (32-36); MEAN CORPUSCULAR VOLUME 86 FL (80-99); MEAN PLATELET VOLUME 10.2 FL (7.4-10.4); MONOCYTES # (AUTO) 0.8 X 10^3 (0.0-1.0); MONOCYTES % (AUTO) 7 % (0-12); NEUTROPHILS # (AUTO) 5.9 X 10^3 (1.8-7.8); NEUTROPHILS % (AUTO) 51 % (42-75); PLATELET COUNT 313 10^3/uL (130-400); RED CELL DISTRIBUTION WIDTH 15.8 % (10.0-14.5); WHITE BLOOD COUNT 11.6 10^3/uL (4.3-11.0)
[2018-04-18 23:17] LABS: ALANINE AMINOTRANSFERASE 19 U/L (0-55); ALBUMIN 3.8 GM/DL (3.2-4.5); ALKALINE PHOSPHATASE 69 U/L (40-136); BILIRUBIN,TOTAL 0.3 MG/DL (0.1-1.0); BUN/CREATININE RATIO 23; CALCIUM 9.5 MG/DL (8.5-10.1); CARBON DIOXIDE 24 MMOL/L (21-32); CHLORIDE 100 MMOL/L (98-107); CREATININE SERUM 0.69 MG/DL (0.60-1.30); GFR ESTIMATED > 60; GLUCOSE 231 MG/DL (70-105); MAGNESIUM 2.3 MG/DL (1.8-2.4); POTASSIUM 4.1 MMOL/L (3.6-5.0); SODIUM 136 MMOL/L (135-145); TOTAL PROTEIN 6.7 GM/DL (6.4-8.2)
[2018-04-18 23:41] LABS: BILIRUBIN,URINE NEGATIVE (NEGATIVE); CLARITY,URINE CLEAR; COLOR,URINE YELLOW; GLUCOSE, URINE (UA) 3+ (NEGATIVE); KETONES,URINE NEGATIVE (NEGATIVE); LEUKOCYTE ESTERASE ,URINE 1+ (NEGATIVE); NITRITE,URINE NEGATIVE (NEGATIVE); PH,URINE 6.5 (5-9); PROTEIN,URINE NEGATIVE (NEGATIVE); UROBILINOGEN,URINE NORMAL (NORMAL)
[2018-04-18 23:53] LABS: BACTERIA,URINE FEW /HPF
[2018-04-18 23:58] LABS: AMPHETAMINE SCREEN, URINE NEGATIVE (NEGATIVE); BARBITURATE SCREEN URINE NEGATIVE (NEGATIVE); BENZODIAZEPINES SCREEN URINE NEGATIVE (NEGATIVE); CANNABINOID SCREEN, URINE NEGATIVE (NEGATIVE); COCAINE SCREEN URINE NEGATIVE (NEGATIVE); METHADONE STAT NEGATIVE (NEGATIVE); METHAMPHETAMINE SCREEN URINE S NEGATIVE (NEGATIVE); OPIATE SCREEN URINE NEGATIVE (NEGATIVE); OXYCODONE STAT NEGATIVE (NEGATIVE); PROPOXYPHENE STAT NEGATIVE (NEGATIVE); TRICYCLIC ANTIDEPRESSANTS SCRE POSITIVE (NEGATIVE)
[2018-04-19] MEDS ORDERED: DIATRIZOATE MEGLUM/SODIUM 37% 120 ML (GASTROGRAFIN) PO ONE (00:15)
[2018-04-19] MEDS ORDERED: ONDANSETRON 4 MG/2 ML (SDV) Z0FRAN IVP ONE (00:15)
--- NOTE | 2018-04-19 00:15 | ED Abdominal Pain ---
General Chief Complaint: Abdominal/GI Problems Stated Complaint: ABD PAIN,CONSTIPATION Nursing Triage Note: pt complaint of abdominal pain. pt states normal bowl movement one month ago pt states last month has been having trouble with bowel movements states doubling up on laxitives and having minimal results. pt states abdominal cramping and bloating. states last july had gastric surgery in newborn Sepsis Screen: No Definite Risk Source of Information: Patient, Family (Daughter) Exam Limitations: No Limitations History of Present Illness Date Seen by Provider: Apr 19, 2018 Time Seen by Provider: 00:00 Initial Comments Patient presents to ER by private conveyance with her daughter and chief complaint she's having some abdominal pain diffusely and difficulty having bowel movements. Yesterday she was in a very small amount of liquid stool. He says this progressively worsening over the last 4-6 weeks. 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 She contacted the surgeon the surgeon recommended Colace, Benefiber twice a day. She been doing that for a few weeks with no benefits. She is not been having a solid stool for the past 4 weeks. She has gone to her primary care doctor and he did a plain x-ray of her abdomen which showed quite a bit of stool and gave her linzess which despite increasing the dose twice has not made any difference in her symptoms. Her bowel pain is diffuse and not associated with fevers, chills. She is having nausea but no vomiting. Allergies and Home Medications Allergies Coded Allergies: No Known Drug Allergies (Verified , 05/20/16) Home Medications Albuterol 8.5 Gm Hfa.aer.ad, 2 PUFF IH Q4 -6H PRN for SHORTNESS OF BREATH, ( Reported) Aspirin 81 Mg Tabec, 81 MG PO DAILY@1200, (Reported) Cyclobenzaprine Hcl 10 Mg Tablet, 10 MG PO BID PRN for MUSCLE SPASMS, (Reported) Diltiazem Hcl 360 Mg Capsule.sa, 360 MG PO HS, (Reported) Doxepin Hcl 25 Mg Capsule, 25 MG PO BID, (Reported) Duloxetine Hcl 30 Mg Capsule.dr, 30 MG PO BID, (Reported) Escitalopram Oxalate 20 Mg Tablet, 20 MG PO DAILY@1400, (Reported) Fexofenadine Hcl 180 Mg Tablet, 180 MG PO DAILY, (Reported) Fish Oil/Dha/Epa 1 Each Capsule, 1,200 MG PO BID, (Reported) Gabapentin 300 Mg Capsule, 300 MG PO HS, (Reported) Hydroxyzine HCl 25 Mg Tablet, 25 MG PO Q8H Prescribed by: ZANE OTERO on 12/29/161736 Hyoscyamine Sulfate 0.125 Mg Tab.subl, 0.125 MG SL QID PRN for ABDOMINAL PAIN, ( Reported) Isosorbide Mononitrate 30 Mg Tab.er.24h, 30 MG PO DAILY, (Reported) Losartan/Hydrochlorothiazide 1 Tab Tablet, 1 TAB PO DAILY, (Reported) Metformin HCl 1,000 Mg Tablet, 1,000 MG PO BID, (Reported) Metoprolol Succinate 50 Mg Tab.sr.24h, 50 MG PO DAILY@1200, (Reported) Multivitamins-Min/Fa/Ginkgo 1 Each Tablet, 1 TAB PO DAILY, (Reported) Pantoprazole Sodium 40 Mg Tablet.dr, 40 MG PO BIDAC, (Reported) Potassium Gluconate 99 Mg Tablet, 99 MG PO DAILY, (Reported) Rosuvastatin Calcium 5 Mg Tablet, 5 MG PO DAILY@1200, (Reported) Silver Sulfadiazine 25 Gm Cream..g., TP DAILY PRN PRN for RASH, (Reported) Talc/Cellulos/Chloroxy/Aldioxa 71 Gm Powder, TP DAILY PRN for RASH, (Reported) Tramadol HCl 50 Mg Tablet, 50 MG PO Q8H Prescribed by: ZANE OTERO on 12/29/161736 Ursodiol 300 Mg Capsule, 300 MG PO QID, (Reported) Ustekinumab 90 Mg/1 Ml Syringe, 90 MG SQ WEEK, (Reported) Patient Home Medication List Home Medication List Reviewed: Yes Review of Systems Review of Systems Constitutional: No chills, No diaphoresis EENTM: No Blurred Vision, No Double Vision Respiratory: Denies Cough, Denies Shortness of Air Cardiovascular: Denies Chest Pain, Denies Edema Gastrointestinal: See HPI, Abdomen Distended, Abdominal Pain; Denies Blood Streaked Stools; Constipated; Denies Diarrhea; Nausea; Denies Poor Fluid Intake , Denies Vomiting Genitourinary: Denies Burning, Denies Discharge Musculoskeletal: No back pain, No joint pain Skin: No pruritus, No rash Psychiatric/Neurological: Denies Headache, Denies Numbness Past Dsqesny-Epsavo-Kwyyxb Hx Patient Social History Alcohol Use: Denies Use Recreational Drug Use: No Smoking Status: Never a Smoker Recent Foreign Travel: No Contact w/Someone Who Travel: No Recent Infectious Disease Expo: No Recent Hopitalizations: No Immunizations Up To Date Tetanus Booster (TDap): Unknown Date of Pneumonia Vaccine: Aug 31, 2007 Date of Influenza Vaccine: Nov 30, 2013 Seasonal Allergies Seasonal Allergies: Yes Past Medical History Surgeries: Yes (HERNIA REPAIR X3) Abdominal, Cardiac, Coronary Stent, Gallbladder Respiratory: Yes Sleep Apnea Currently Using CPAP: Yes Cardiac: Yes (stent x1) Chronic Edema/Swelling, Coronary Artery Disease, Hypertension Neurological: No Reproductive Disorders: No Sexually Transmitted Disease: No Kidney Infection Gastrointestinal: Yes (nausea) Gastroesophageal Reflux, Polyps Musculoskeletal: Yes Arthritis Endocrine: Yes (nodules on thyroid) Diabetes, Insulin dep Cancer: No Psychosocial: Yes Anxiety Integumentary: No Blood Disorders: Yes (anemia) Physical Exam Vital Signs Vital Signs - First Documented 04/18/18 22:00 Temp 97.9 Pulse 81 Resp 18 B/P (MAP) 150/83 (105) Pulse Ox 81 O2 Delivery Room Air Capillary Refill : Less Than 3 Seconds Height/Weight/BMI Height: 5'1.00" Weight: 230lbs. 0.0oz. [id number]; 51.2 BMI Method:Estimated General Appearance: mild distress, obese HEENT: PERRL/EOMI, pharynx normal Neck: non-tender, full range of motion, supple, normal inspection Respiratory: chest non-tender, lungs clear, normal breath sounds, no respiratory distress, no accessory muscle use Cardiovascular: normal peripheral pulses, regular rate, rhythm Gastrointestinal: normal bowel sounds (quiescent), soft, no organomegaly, distended (moderately); No guarding, No rebound; tenderness (diffuse 4 quadrants) Extremities: normal inspection, no pedal edema, no calf tenderness, normal capillary refill Neurologic/Psychiatric: alert, normal mood/affect, oriented x 3 Skin: normal color, warm/dry Progress/Results/Core Measures Results/Orders Lab Results Laboratory Tests Test 04/18/18 22:30 04/18/18 23:30 Range/Units White Blood Count 11.6 H 4.3-11.0 10^3/uL Red Blood Count 4.45 4.35-5.85 10^6/uL Hemoglobin 12.3 11.5-16.0 G/DL Hematocrit 38 35-52 % Mean Corpuscular Volume 86 80-99 FL Mean Corpuscular Hemoglobin 28 25-34 PG Mean Corpuscular Hemoglobin Concent 32 32-36 G/DL Red Cell Distribution Width 15.8 H 10.0-14.5 % Platelet Count 313 130-400 10^3/uL Mean Platelet Volume 10.2 7.4-10.4 FL Neutrophils (%) (Auto) 51 42-75 % Lymphocytes (%) (Auto) 39 12-44 % Monocytes (%) (Auto) 7 0-12 % Eosinophils (%) (Auto) 4 0-10 % Basophils (%) (Auto) 0 0-10 % Neutrophils # (Auto) 5.9 1.8-7.8 X 10^3 Lymphocytes # (Auto) 4.5 H 1.0-4.0 X 10^3 Monocytes # (Auto) 0.8 0.0-1.0 X 10^3 Eosinophils # (Auto) 0.5 H 0.0-0.3 10^3/uL Basophils # (Auto) 0.0 0.0-0.1 10^3/uL Sodium Level 136 135-145 MMOL/L Potassium Level 4.1 3.6-5.0 MMOL/L Chloride Level 100 98-107 MMOL/L Carbon Dioxide Level 24 21-32 MMOL/L Anion Gap 12 5-14 MMOL/L Blood Urea Nitrogen 16 7-18 MG/DL Creatinine 0.69 0.60-1.30 MG/DL Estimat Glomerular Filtration Rate > 60 BUN/Creatinine Ratio 23 Glucose Level 231 H 70-105 MG/DL Calcium Level 9.5 8.5-10.1 MG/DL Corrected Calcium 9.7 8.5-10.1 MG/DL Magnesium Level 2.3 1.8-2.4 MG/DL Total Bilirubin 0.3 0.1-1.0 MG/DL Aspartate Amino Transf (AST/SGOT) 22 5-34 U/L Alanine Aminotransferase (ALT/SGPT) 19 0-55 U/L Alkaline Phosphatase 69 40-136 U/L Total Protein 6.7 6.4-8.2 GM/DL Albumin 3.8 3.2-4.5 GM/DL Urine Color YELLOW Urine Clarity CLEAR Urine pH 6.5 5-9 Urine Specific [place] 1.020 1.016-1.022 Urine Protein NEGATIVE NEGATIVE Urine Glucose (UA) 3+ H NEGATIVE Urine Ketones NEGATIVE NEGATIVE Urine Nitrite NEGATIVE NEGATIVE Urine Bilirubin NEGATIVE NEGATIVE Urine Urobilinogen NORMAL NORMAL MG/DL Urine Leukocyte Esterase 1+ H NEGATIVE Urine RBC (Auto) NEGATIVE NEGATIVE Urine RBC NONE /HPF Urine WBC NONE /HPF Urine Squamous Epithelial Cells 2-5 /HPF Urine Crystals NONE /LPF Urine Bacteria FEW H /HPF Urine Casts NONE /LPF Urine Mucus NEGATIVE /LPF Urine Culture Indicated NO Urine Opiates Screen NEGATIVE NEGATIVE Urine Oxycodone Screen NEGATIVE NEGATIVE Urine Methadone Screen NEGATIVE NEGATIVE Urine Propoxyphene Screen NEGATIVE NEGATIVE Urine Barbiturates Screen NEGATIVE NEGATIVE Ur Tricyclic Antidepressants Screen POSITIVE H NEGATIVE Urine Phencyclidine Screen NEGATIVE NEGATIVE Urine Amphetamines Screen NEGATIVE NEGATIVE Urine Methamphetamines Screen NEGATIVE NEGATIVE Urine Benzodiazepines Screen NEGATIVE NEGATIVE Urine Cocaine Screen NEGATIVE NEGATIVE Urine Cannabinoids Screen NEGATIVE NEGATIVE My Orders Orders - MARCUS DAVID Cbc With Automated Diff (04/18/18 22:57) Comprehensive Metabolic Panel (04/18/18 22:57) Drug Screen Stat (Urine) (04/18/18 22:57) Magnesium (04/18/18 22:57) Ua Culture If Indicated (04/18/18 22:57) Saline Lock/Iv-Start (04/18/18 22:57) Ns Iv 1000 Ml (Sodium Chloride 0.9%) (04/18/18 22:57) Diatrizoate Meglum/Sodium 37% (Gastrogra (04/19/18 00:15) Ct Abdomen/Pelvis W (04/19/18 00:12) Ondansetron Injection (Zofran Injectio (04/19/18 00:15) Ketorolac Injection (Toradol Injection) (04/19/18 01:00) Vital Signs/I&O 04/18/18 22:00 Temp 97.9 Pulse 81 Resp 18 B/P (MAP) 150/83 (105) Pulse Ox 81 O2 Delivery Room Air Blood Pressure Mean: 105 Progress Progress Note : Time: 00:50 Progress Note Diffuse abdominal pain with a month history of constipation. A bowel obstruction seems less likely however we'll obtain a CT with Gastrografin and IV contrast. Her labs are unrevealing. We'll give her a liter fluids to help hydrate. If we do not find anything acute then we can send her back to her primary care doctor for further evaluation. She has plans to get a colonoscopy set up outpatient. Toradol for pain and Zofran for nausea. Diagnostic Imaging Diagonstic Imaging: CT (with IV and oral contrast) Plain Films/CT/US/NM/MRI: abdomen, pelvis Comments Abundant stool in the colon. Reviewed: Reviewed [place] Study, Reviewed by Me Departure Impression Primary Impression: Constipation Qualified Codes: K59.00 - Constipation, unspecified Disposition: HOME, SELF-CARE Condition: Stable Departure-Patient Inst. Decision time for Depature: 02:26 Referrals: DENNISE BUSH MD (PCP/Family) Primary Care Physician Patient Instructions: Constipation, Adult (DC) Add. Discharge Instructions: it support technician a bottle of MiraLAX and mix 1 capful in a glass of water and take this up to 4 times a day. it support technician an enema and start using these once a day for the next 2-3 days. Follow-up with primary care for reevaluation in the next week. Continue to use the Metamucil or Benefiber. Drink lots of fluids. All discharge instructions reviewed with patient and/or family. Voiced understanding. MARCUS DAVID Apr 19, 2018 00:14
[2018-04-19] MEDS ORDERED: KETOROLAC 30 MG/ML VIAL IVP ONE (01:00)
[2018-04-19 02:45] VITALS: BP 133/59
--- NOTE | 2018-04-19 07:26 | Diagnostic Imaging Report ---
PROCEDURE: CT abdomen and pelvis with contrast. TECHNIQUE: Multiple contiguous axial images were obtained through the abdomen and pelvis after administration of intravenous contrast. INDICATION: Abdominal pain and constipation. COMPARISON: Multiple priors, most recent performed on 12/06/2017. FINDINGS: The lung bases are clear. The visualized heart is normal in size. The liver, spleen and adrenal glands are normal. The pancreas is moderately atrophic. No pancreatic ductal dilatation is demonstrated. The gallbladder is surgically absent. No biliary ductal dilatation is demonstrated. The kidneys enhance symmetrically, without evidence of renal calculus, hydronephrosis, or suspicious mass. The visualized ureters are normal. The patient is status post gastric sleeve surgery. Small bowel and colon are normal in course and caliber, without evidence of wall thickening or obstruction. There is mild retained stool in the ascending and transverse colon. The appendix is normal. No pneumoperitoneum, abdominal free fluid, or loculated collection. No lymphadenopathy. The aorta is nonaneurysmal. No evidence of venous thrombosis. The bladder is normal. The uterus demonstrates a normal CT appearance. No adnexal mass or pelvic free fluid. Mesh tacks are demonstrated along the anterior abdominal wall, with midline intra-abdominal wall scar noted. Multilevel degenerative changes involve the spine. No acute osseous abnormality. IMPRESSION: No acute abdominal or pelvic pathology. Mild retained stool in the ascending and transverse colon. Findings are in agreement with initial teleradiology report. Dictated by: Dictated on workstation # [id number]
== END 2018-04-19 02:45 | disposition home or self-care (01) ==
LOC: EDUNIT# 20:44 → ER 20:46
DX: K59.00 Constipation, unspecified (principal); G47.30 Sleep apnea, unspecified; I25.10 Atherosclerotic heart disease of native coronary artery without angina pectoris; I10 Essential (primary) hypertension; D64.9 Anemia, unspecified; K21.9 Gastro-esophageal reflux disease without esophagitis; E11.9 Type 2 diabetes mellitus without complications; F41.9 Anxiety disorder, unspecified; Z86.010 Personal history of colon polyps; Z87.448 Personal history of other diseases of urinary system; Z79.51 Long term (current) use of inhaled steroids; Z79.82 Long term (current) use of aspirin; Z98.84 Bariatric surgery status; Z95.5 Presence of coronary angioplasty implant and graft; Z98.890 Other specified postprocedural states
CPT/HCPCS: 36415; 74177; 80053; 80306; 81000; 83735; 85025

== ENCOUNTER → 2018-05-31 | Outpatient (CLI) | payer MEDICARE, MEDICAID | LOC: CARD 12:55 | PROVIDERS: ATTEND Internal Medicine Cardiovascular Disease | DX: R07.89 Other chest pain (principal); I25.10 Atherosclerotic heart disease of native coronary artery without angina pectoris; I10 Essential (primary) hypertension; R06.00 Dyspnea, unspecified; E78.2 Mixed hyperlipidemia; I35.0 Nonrheumatic aortic (valve) stenosis | CPT/HCPCS: 93225; 93226; 93306 ==

== ENCOUNTER → 2018-06-06 | Outpatient (CLI) | payer MEDICARE, MEDICAID ==
[~2018-06-06] VITALS: Ht 157.5 cm; Wt 104.3 kg
[~2018-06-06] MED LIST changes: +CATHETER FLUSH 10 ML SYR IV PRN; +REGADENOSON 0.4 MG/5 ML SYR (LEXISCAN) IV ONE
[2018-06-06 08:19] LABS: ALANINE AMINOTRANSFERASE 12 U/L (0-55); ALBUMIN 3.9 GM/DL (3.2-4.5); ALKALINE PHOSPHATASE 71 U/L (40-136); BILIRUBIN,TOTAL 0.5 MG/DL (0.1-1.0); BUN/CREATININE RATIO 17; CALCIUM 9.8 MG/DL (8.5-10.1); CARBON DIOXIDE 29 MMOL/L (21-32); CHLORIDE 103 MMOL/L (98-107); CHOLESTEROL 145 MG/DL (< 200); CREATININE SERUM 0.69 MG/DL (0.60-1.30); GFR ESTIMATED > 60; GLUCOSE 121 MG/DL (70-105); HDL CHOLESTEROL 54 MG/DL (40-60); POTASSIUM 4.3 MMOL/L (3.6-5.0); SODIUM 140 MMOL/L (135-145); TOTAL PROTEIN 6.7 GM/DL (6.4-8.2); TRIGLYCERIDES 120 MG/DL (<150); VLDL CHOLESTEROL 24 MG/DL (5-40)
[2018-06-06 09:31] VITALS: BP 132/75
[2018-06-06 09:32] VITALS: BP 134/73
--- NOTE | 2018-06-06 15:21 | STRESS TEST ---
DATE OF SERVICE: 06/06/2018 LEXISCAN MYOVIEW STRESS TEST REPORT REFERRING PHYSICIAN: Dr. Darrick Dudley. Baseline heart rate is 67. Baseline blood pressure 138/76. Baseline EKG is sinus rhythm with no ischemic changes. In summary, the patient was injected with 10.06 mCi of technetium-99 Myoview and the resting images were obtained. Then, the patient received 0.4 mg of Lexiscan followed by 30.1 mCi of technetium-99 Myoview. Throughout the test, there were no EKG changes. The resting and stress images were reviewed and compared in the short axis, horizontal long axis, and vertical long axis views. Review of the images showed good radiotracer uptake with no significant ischemia or infarction. SSS is 2, SDS 2, TID value 1.03. On the gated images, the left ventricle appeared to be normal size with normal contractility. Calculated ejection fraction 62%. CONCLUSION: 1. The patient tolerated Lexiscan well. 2. No ischemia or infarction on SPECT images. 3. Normal left ventricular size with normal contractility. Calculated ejection fraction 62%. Job ID: [id number] DocumentID: [id number] Dictated Date: 06/06/2018 15:01:36 Junior Media Buyer Date: 06/06/2018 15:20:50 Dictated By: GLORIA SINGH MD
== END ==
LOC: CARD 07:42
PROVIDERS: ATTEND Internal Medicine Cardiovascular Disease
DX: R07.9 Chest pain, unspecified (principal); I25.10 Atherosclerotic heart disease of native coronary artery without angina pectoris; I10 Essential (primary) hypertension; E78.5 Hyperlipidemia, unspecified; R06.00 Dyspnea, unspecified
CPT/HCPCS: 36415; 78452; 80053; 80061; 93017

== ENCOUNTER 2019-02-14 20:06 | Emergency (ER) | payer MEDICARE, MEDICAID ==
[~2019-02-14] VITALS: Ht 157.5 cm; Wt 100.0 kg
[~2019-02-14 20:06] MED LIST changes: -CATHETER FLUSH 10 ML SYR IV PRN; -REGADENOSON 0.4 MG/5 ML SYR (LEXISCAN) IV ONE
[2019-02-14] MEDS ORDERED: NS IV 1000 ML 1,000 ML IV SCH ×2 (20:18→21:00)
--- NOTE | 2019-02-14 20:24 | ED Abdominal Pain ---
General Chief Complaint: Abdominal/GI Problems Stated Complaint: ABD PAIN Nursing Triage Note: Pt to room #3 via [facility] ems cart from home with c/o nausea, vomiting, diarrhea, and abd pain. [facility] ems accessed 18g IV to Lt a/c and adm 4mg zofran. Pt reports intermittent abd discomfort and nausesa for approx x1wk. Pt reports on this day vomiting and diarrhea began. A&OX4. Sepsis Screen: No Definite Risk Source of Information: Patient, EMS Exam Limitations: No Limitations History of Present Illness Date Seen by Provider: Feb 14, 2019 Time Seen by Provider: 20:07 Initial Comments Patient presents to ER by EMS from home with chief complaint of intermittent abdominal pains for the past 5 days in her right lower quadrant and umbilicus. Tonight however about an hour after she ate at 1830 she began to experience 12 out of 10 sharp unrelenting pain. She had nausea and vomiting throughout the week. She's having extreme nausea so EMS gave her 4 mg Zofran. She rates her pain as a 6 out of 10 now. She has had her gallbladder out as well as bilateral inguinal hernia repairs and umbilicus hernia repair with mesh. She still has her gallbladder negative. She has a history of diverticulitis and she has had some loose stools starting today off and on but no blood in them and she says this does not feel like diverticulitis. She has diabetes and has not taken her Trujeo 18 units tonight. She takes metformin and glimepiride. She has a history of a stent placed by Dr. Alfaro. She follows with Dr. Bush in [place]. Allergies and Home Medications Allergies Coded Allergies: No Known Drug Allergies (Verified , 05/20/16) Home Medications Albuterol 8.5 Gm Hfa.aer.ad, 2 PUFF IH Q4 -6H PRN for SHORTNESS OF BREATH, (Reported) Aspirin 81 Mg Tabec, 81 MG PO DAILY@1200, (Reported) Cyclobenzaprine Hcl 10 Mg Tablet, 10 MG PO BID PRN for MUSCLE SPASMS, (Reported) Diltiazem Hcl 360 Mg Capsule.sa, 360 MG PO HS, (Reported) Doxepin Hcl 25 Mg Capsule, 25 MG PO BID, (Reported) Duloxetine Hcl 30 Mg Capsule.dr, 30 MG PO BID, (Reported) Escitalopram Oxalate 20 Mg Tablet, 20 MG PO DAILY@1400, (Reported) Fexofenadine Hcl 180 Mg Tablet, 180 MG PO DAILY, (Reported) Fish Oil/Dha/Epa 1 Each Capsule, 1,200 MG PO BID, (Reported) Gabapentin 300 Mg Capsule, 300 MG PO HS, (Reported) Hydroxyzine HCl 25 Mg Tablet, 25 MG PO Q8H Prescribed by: ZANE OTERO on 12/29/161736 Hyoscyamine Sulfate 0.125 Mg Tab.subl, 0.125 MG SL QID PRN for ABDOMINAL PAIN, (Reported) Isosorbide Mononitrate 30 Mg Tab.er.24h, 30 MG PO DAILY, (Reported) Losartan/Hydrochlorothiazide 1 Tab Tablet, 1 TAB PO DAILY, (Reported) Metformin HCl 1,000 Mg Tablet, 1,000 MG PO BID, (Reported) Metoprolol Succinate 50 Mg Tab.sr.24h, 50 MG PO DAILY@1200, (Reported) Multivitamins-Min/Fa/Ginkgo 1 Each Tablet, 1 TAB PO DAILY, (Reported) Pantoprazole Sodium 40 Mg Tablet.dr, 40 MG PO BIDAC, (Reported) Potassium Gluconate 99 Mg Tablet, 99 MG PO DAILY, (Reported) Rosuvastatin Calcium 5 Mg Tablet, 5 MG PO DAILY@1200, (Reported) Silver Sulfadiazine 25 Gm Cream..g., TP DAILY PRN PRN for RASH, (Reported) Talc/Cellulos/Chloroxy/Aldioxa 71 Gm Powder, TP DAILY PRN for RASH, (Reported) Tramadol HCl 50 Mg Tablet, 50 MG PO Q8H Prescribed by: ZANE OTERO on 12/29/161736 Ursodiol 300 Mg Capsule, 300 MG PO QID, (Reported) Ustekinumab 90 Mg/1 Ml Syringe, 90 MG SQ WEEK, (Reported) Patient Home Medication List Home Medication List Reviewed: Yes Review of Systems Review of Systems Constitutional: No chills, No diaphoresis, No fever; malaise EENTM: No Blurred Vision, No Double Vision Respiratory: Denies Cough, Denies Shortness of Air Cardiovascular: Denies Chest Pain, Denies Edema, Denies Irregular Heart Rate Gastrointestinal: Denies Constipated, Denies Diarrhea, Denies Nausea, Denies Vomiting Genitourinary: Denies Burning, Denies Discharge Musculoskeletal: No back pain, No joint pain Psychiatric/Neurological: Denies Anxiety, Denies Depressed Past Yuvnjdb-Isonak-Vartmp Hx Patient Social History Alcohol Use: Denies Use Recreational Drug Use: No Smoking Status: Never a Smoker Recent Foreign Travel: No Contact w/Someone Who Travel: No Recent Infectious Disease Expo: No Recent Hopitalizations: No Immunizations Up To Date Tetanus Booster (TDap): Unknown Date of Pneumonia Vaccine: Aug 31, 2007 Date of Influenza Vaccine: Nov 30, 2013 Seasonal Allergies Seasonal Allergies: Yes Past Medical History Surgeries: Yes (HERNIA REPAIR X3) Abdominal, Cardiac, Coronary Stent, Gallbladder Respiratory: Yes Sleep Apnea Currently Using CPAP: Yes Cardiac: Yes (stent x1) Chronic Edema/Swelling, Coronary Artery Disease, Hypertension Neurological: No Reproductive Disorders: No Sexually Transmitted Disease: No Kidney Infection Gastrointestinal: Yes (nausea) Gastroesophageal Reflux, Polyps Musculoskeletal: Yes Arthritis Endocrine: Yes (nodules on thyroid) Diabetes, Insulin dep Cancer: No Psychosocial: Yes Anxiety Integumentary: No Blood Disorders: Yes (anemia) Physical Exam Vital Signs Vital Signs - First Documented 02/14/19 20:11 Temp 36.6 Pulse 76 Resp 17 B/P (MAP) 164/84 (110) Pulse Ox 97 O2 Delivery Room Air Capillary Refill : Less Than 3 Seconds Height/Weight/BMI Height: 5'2.00" Weight: 230lbs. 0.0oz. 104.595309rc; 40.00 BMI Method:Estimated General Appearance: WD/WN, mild distress HEENT: PERRL/EOMI, pharynx normal Neck: full range of motion, normal inspection Respiratory: lungs clear, normal breath sounds, no respiratory distress, no accessory muscle use Cardiovascular: normal peripheral pulses, regular rate, rhythm Peripheral Pulses: 2+ Radial Pulses (R), 2+ Radial Pulses (L) Gastrointestinal: normal bowel sounds, soft; No rebound; tenderness (christiano- umbilicus and right lower quadrant without rebound tenderness.), other (negative for Rovsing sign or mesenteric signs.) Extremities: normal range of motion, non-tender, normal inspection, normal capillary refill Neurologic/Psychiatric: alert, normal mood/affect, oriented x 3 Skin: normal color, warm/dry Focused Exam Lactate Level 02/14/19 20:10: Lactic Acid Level 2.18*H 02/14/19 22:10: Lactic Acid Level Laboratory Tests Test 02/14/19 20:10 02/14/19 22:10 Lactic Acid Level 2.18 MMOL/L (0.50-2.00) *H Progress/Results/Core Measures Results/Orders Lab Results Laboratory Tests Test 02/14/19 20:10 02/14/19 20:54 02/14/19 22:10 Range/Units White Blood Count 8.8 4.3-11.0 10^3/uL Red Blood Count 4.56 4.35-5.85 10^6/uL Hemoglobin 12.8 11.5-16.0 G/DL Hematocrit 39 35-52 % Mean Corpuscular Volume 86 80-99 FL Mean Corpuscular Hemoglobin 28 25-34 PG Mean Corpuscular Hemoglobin Concent 33 32-36 G/DL Red Cell Distribution Width 14.9 H 10.0-14.5 % Platelet Count 295 130-400 10^3/uL Mean Platelet Volume 10.3 7.4-10.4 FL Neutrophils (%) (Auto) 44 42-75 % Lymphocytes (%) (Auto) 44 12-44 % Monocytes (%) (Auto) 6 0-12 % Eosinophils (%) (Auto) 5 0-10 % Basophils (%) (Auto) 0 0-10 % Neutrophils # (Auto) 3.9 1.8-7.8 X 10^3 Lymphocytes # (Auto) 3.9 1.0-4.0 X 10^3 Monocytes # (Auto) 0.5 0.0-1.0 X 10^3 Eosinophils # (Auto) 0.4 H 0.0-0.3 10^3/uL Basophils # (Auto) 0.0 0.0-0.1 10^3/uL Prothrombin Time 12.2 12.2-14.7 SEC INR Comment 0.9 0.8-1.4 Activated Partial Thromboplast Time 28 24-35 SEC Sodium Level 136 135-145 MMOL/L Potassium Level 4.0 3.6-5.0 MMOL/L Chloride Level 102 98-107 MMOL/L Carbon Dioxide Level 22 21-32 MMOL/L Anion Gap 12 5-14 MMOL/L Blood Urea Nitrogen 18 7-18 MG/DL Creatinine 0.86 0.60-1.30 MG/DL Estimat Glomerular Filtration Rate > 60 BUN/Creatinine Ratio 21 Glucose Level 333 H 70-105 MG/DL Lactic Acid Level 2.18 *H 0.50-2.00 MMOL/L Calcium Level 9.5 8.5-10.1 MG/DL Corrected Calcium 9.3 8.5-10.1 MG/DL Total Bilirubin 0.3 0.1-1.0 MG/DL Aspartate Amino Transf (AST/SGOT) 11 5-34 U/L Alanine Aminotransferase (ALT/SGPT) 7 0-55 U/L Alkaline Phosphatase 67 40-136 U/L Total Protein 7.0 6.4-8.2 GM/DL Albumin 4.2 3.2-4.5 GM/DL Urine Color YELLOW Urine Clarity CLEAR Urine pH 5.5 5-9 Urine Specific [place] <=1.005 1.016-1.022 Urine Protein NEGATIVE NEGATIVE Urine Glucose (UA) 3+ H NEGATIVE Urine Ketones NEGATIVE NEGATIVE Urine Nitrite NEGATIVE NEGATIVE Urine Bilirubin NEGATIVE NEGATIVE Urine Urobilinogen 0.2 < = 1.0 MG/DL Urine Leukocyte Esterase NEGATIVE NEGATIVE Urine RBC (Auto) NEGATIVE NEGATIVE Urine RBC NONE /HPF Urine WBC NONE /HPF Urine Squamous Epithelial Cells RARE /HPF Urine Crystals NONE /LPF Urine Bacteria TRACE /HPF Urine Casts NONE /LPF Urine Mucus NEGATIVE /LPF Urine Culture Indicated CULTURE PENDING My Orders Orders - MARCUS DAVID Cbc With Automated Diff (02/14/19 20:18) Comprehensive Metabolic Panel (02/14/19 20:18) Blood Culture (02/14/19 20:18) Urinalysis (02/14/19 20:18) Urine Culture (02/14/19 20:18) Protime With Inr (02/14/19 20:18) Partial Thromboplastin Time (02/14/19 20:18) Ed Iv/Invasive Line Start (02/14/19 20:18) Ed Iv/Invasive Line Start (02/14/19 20:18) Ondansetron Injection (Zofran Injectio (02/14/19 20:30) Lactic Acid Analyzer (02/14/19 20:18) Ns Iv 1000 Ml (Sodium Chloride 0.9%) (02/14/19 20:18) Piperacillin Sodium/Tazobactam (Zosyn Vi (02/14/19 20:30) Fentanyl Injection (Sublimaze Injection (02/14/19 20:30) Ct Abd/Pelv W (Appendicitis) (02/14/19 20:38) Iohexol Injection (Omnipaque 350 Mg/Ml 1 (02/14/19 21:00) Received Contrast (Hold Metformin- Contr (02/14/19 21:00) Ns (Ivpb) (Sodium Chloride 0.9% Ivpb Bag (02/14/19 21:00) Ed Iv/Invasive Line Start (02/14/19 21:00) Ns Iv 1000 Ml (Sodium Chloride 0.9%) (02/14/19 21:00) Insulin (Regular) Human (Humulin R (Per (02/14/19 21:15) Medications Given in ED Current Medications Medications Dose Ordered Sig/Igor Route Start Time Stop Time Status Last Admin Dose Admin Fentanyl Citrate 50 mcg ONCE ONCE IVP 02/14/19 20:30 02/14/19 20:31 DC 02/14/19 20:32 50 MCG Insulin Human Regular 5 unit ONCE ONCE SC 02/14/19 21:15 02/14/19 21:16 DC 02/14/19 21:17 5 UNIT Iohexol 100 ml ONCE ONCE IV 02/14/19 21:00 02/14/19 21:50 DC 02/14/19 21:37 100 ML Ondansetron HCl 4 mg PRN PRN IV 02/14/19 20:30 02/14/19 20:32 DC 02/14/19 20:27 4 MG Piperacillin Sod/ Tazobactam Sod 4.5 gm/Sodium Chloride 100 ml @ 200 mls/hr ONCE ONCE IV 02/14/19 20:30 02/14/19 20:59 DC 02/14/19 21:17 200 MLS/HR Sodium Chloride 100 ml ONCE ONCE IV 02/14/19 21:00 02/14/19 21:50 DC 02/14/19 21:37 80 ML Vital Signs/I&O 02/14/19 02/14/19 20:11 20:55 Temp 36.6 36.6 Pulse 76 72 Resp 17 18 B/P (MAP) 164/84 (110) 143/92 Pulse Ox 97 94 O2 Delivery Room Air Room Air Blood Pressure Mean: 110 POS Progress Progress Note #1: Time: 20:37 Progress Note Family and a CT with IV contrast give her a liter fluids get some labs. She has no septic vital signs but she has an acute abdomen on exam and given her age will think about things like appendicitis, colitis, hernia related pain. We'll get blood cultures labs and imaging. Fentanyl and Zofran for her symptoms. Progress Note #2: Time: 22:26 Progress Note At no time was patient was here and she have any septic vital signs are elevated white count. She has no history of fever. Her lactate was drawn as reflux because we obtain blood cultures anticipating a possible bacterial intra- abdominal acute process. Her lactate is of no consequence from sepsis standpoint. She does not have sepsis. Probably indicates that she's dehydrated and we have given her adequate IV fluids. CT is unremarkable area and probably she has a viral colitis and we'll recommend conservative management. Diagnostic Imaging Diagonstic Imaging: CT Plain Films/CT/US/NM/MRI: abdomen, pelvis Comments NAME: LAN [facility]AMPO [facility] REC#: [id number] PT STATUS: REG ER : 1960 PHYSICIAN: MARCUS DAVID MD ADMIT DATE: 02/14/19/ER Draft POSDate of Exam:02/14/19 CT ABD/PELV W (APPENDICITIS) PROCEDURE: CT abdomen and pelvis with contrast, rule out appendicitis. TECHNIQUE: Multiple contiguous axial images were obtained through the abdomen and pelvis after the administration of intravenous contrast. INDICATION: Right lower quadrant abdominal pain. COMPARISON: 04/09/2018. FINDINGS: Cholecystectomy. Postoperative changes in the stomach. The liver, pancreas, spleen, adrenals, kidneys, collecting systems and bladder are negative. Reproductive structures grossly unremarkable. Postoperative findings of anterior abdominal hernia repair. Negative appendix. No free intraperitoneal air or fluid. No lymphadenopathy. No evidence of bowel obstruction. Age-appropriate changes in the spine. No acute osseous findings. IMPRESSION: No acute CT findings in the abdomen or pelvis. Dictated on workstation # [id number] Dict: 02/14/194 Trans: 02/14/19 2210 [facility] [id number] Interpreted by: MAICOL PETERS MD Electronically signed by: Reviewed: Reviewed by Me Departure Impression Primary Impression: Colitis Disposition: 01 HOME, SELF-CARE Condition: Stable Departure-Patient Inst. Decision time for Depature: 22:29 Referrals: DENNISE BUSH MD (PCP/Family) Primary Care Physician Patient Instructions: Colitis (DC) Add. Discharge Instructions: I suspect your abdominal pain and recent diarrhea is related to colitis or an infection of gut. Based on the CT scan and blood work it is most likely viral and should spontaneously resolve over the next 3-5 days. I encourage you to drink plenty of fluids. Sports drinks are good option. Tylenol 1000 g every 8 hours as needed for pain. Ibuprofen 600 mg every 8 hours as needed for pain. Hydrocodone one tablet every 6 hours for severe breakthrough pain. If your diarrhea persists for more than 48 hours or you're unable to keep up with your intake and take loperamide/Imodium 2 tablets followed by one tablet every 4 hours afterwards if you're still having watery, loose stools. Ondansetron one tablet every 6 hours under the tongue as necessary for nausea or vomiting. Follow-up with primary care provider if you're not getting better in the next 5 days. If you develop fevers, intractable pain, intractable nausea or other worrisome symptoms then please return to the nearest ER. All discharge instructions reviewed with patient and/or family. Voiced understanding. Scripts Ondansetron (Ondansetron Odt) 4 Mg Tab.rapdis 4 MG PO Q6H PRN for NAUSEA/VOMITING, #8 TAB 0 Refills Prov: MARCUS DAVID 02/14/19 Hydrocodone Bit/Acetaminophen (Hydrocodone/Acetaminophen 5/325mg Tablet) 1 Tab Tab 1 EACH PO Q4-6HR PRN for PAIN-MODERATE MDD 10 for 3 Days, #10 TAB 0 Refills Prov: MARCUS DAVID 02/14/19 MARCUS DAVID Feb 14, 2019 20:24 POS
[2019-02-14] MEDS ORDERED: fentaNYL INJECTION 100 MCG/2 ML AMP IVP ONE (20:30)
[2019-02-14] MEDS ORDERED: PIPERACILLIN SODIUM/TAZOBACTAM 4.5 GM in NS (IVPB) 100 ML IV ONE (20:30)
[2019-02-14] MEDS ORDERED: ONDANSETRON 4 MG/2 ML (SDV) Z0FRAN IV PRN (20:30)
[2019-02-14 20:32] LABS: BASOPHILS % (AUTO) 0 % (0-10); EOSINOPHILS # (AUTO) 0.4 10^3/uL (0.0-0.3); EOSINOPHILS % (AUTO) 5 % (0-10); HEMATOCRIT 39 % (35-52); HEMOGLOBIN 12.8 G/DL (11.5-16.0); LYMPHOCYTES # (AUTO) 3.9 X 10^3 (1.0-4.0); LYMPHOCYTES % (AUTO) 44 % (12-44); MEAN CORPUSCULAR HEMOGLOBIN 28 PG (25-34); MEAN CORPUSCULAR HGB CONC 33 G/DL (32-36); MEAN CORPUSCULAR VOLUME 86 FL (80-99); MEAN PLATELET VOLUME 10.3 FL (7.4-10.4); MONOCYTES # (AUTO) 0.5 X 10^3 (0.0-1.0); MONOCYTES % (AUTO) 6 % (0-12); NEUTROPHILS # (AUTO) 3.9 X 10^3 (1.8-7.8); NEUTROPHILS % (AUTO) 44 % (42-75); PLATELET COUNT 295 10^3/uL (130-400); RED CELL DISTRIBUTION WIDTH 14.9 % (10.0-14.5); WHITE BLOOD COUNT 8.8 10^3/uL (4.3-11.0)
[2019-02-14 20:45] LABS: INR 0.9 (0.8-1.4); PROTHROMBIN TIME PATIENT 12.2 SEC (12.2-14.7)
[2019-02-14 20:51] LABS: ALANINE AMINOTRANSFERASE 7 U/L (0-55); ALBUMIN 4.2 GM/DL (3.2-4.5); ALKALINE PHOSPHATASE 67 U/L (40-136); BILIRUBIN,TOTAL 0.3 MG/DL (0.1-1.0); BUN/CREATININE RATIO 21; CALCIUM 9.5 MG/DL (8.5-10.1); CARBON DIOXIDE 22 MMOL/L (21-32); CHLORIDE 102 MMOL/L (98-107); CREATININE SERUM 0.86 MG/DL (0.60-1.30); GFR ESTIMATED > 60; GLUCOSE 333 MG/DL (70-105); SODIUM 136 MMOL/L (135-145)
[2019-02-14] MEDS ORDERED: IOHEXOL 350 MG/ML 100 ML (OMNIPAQUE 350) VIAL IV ONE (21:00)
[2019-02-14] MEDS ORDERED: NS 100 ML (IVPB) BAG IV ONE (21:00)
[2019-02-14] MEDS ORDERED: HOLD METFORMIN - RECEIVED CONTRAST 20 ML VIAL IV SCH (21:00)
[2019-02-14 21:03] LABS: BILIRUBIN,URINE NEGATIVE (NEGATIVE); CLARITY,URINE CLEAR; COLOR,URINE YELLOW; GLUCOSE, URINE (UA) 3+ (NEGATIVE); KETONES,URINE NEGATIVE (NEGATIVE); LEUKOCYTE ESTERASE ,URINE NEGATIVE (NEGATIVE); NITRITE,URINE NEGATIVE (NEGATIVE); PH,URINE 5.5 (5-9); PROTEIN,URINE NEGATIVE (NEGATIVE)
[2019-02-14 21:11] LABS: BACTERIA,URINE TRACE /HPF; SQUAMOUS EPITHELIAL CELL,UR RARE /HPF
[2019-02-14] MEDS ORDERED: inSUlin (REGULAR) HUMAN 1 UNIT/0.01 ML (CHARGE PER UNIT) SC ONE (21:15)
--- NOTE | 2019-02-14 22:12 | Diagnostic Imaging Report ---
PROCEDURE: CT abdomen and pelvis with contrast, rule out appendicitis. TECHNIQUE: Multiple contiguous axial images were obtained through the abdomen and pelvis after the administration of intravenous contrast. INDICATION: Right lower quadrant abdominal pain. COMPARISON: 04/09/2018. FINDINGS: Cholecystectomy. Postoperative changes in the stomach. The liver, pancreas, spleen, adrenals, kidneys, collecting systems and bladder are negative. Reproductive structures grossly unremarkable. Postoperative findings of anterior abdominal hernia repair. Negative appendix. No free intraperitoneal air or fluid. No lymphadenopathy. No evidence of bowel obstruction. Age-appropriate changes in the spine. No acute osseous findings. IMPRESSION: No acute CT findings in the abdomen or pelvis. Dictated by: Dictated on workstation # [id number]
[2019-02-14] MEDS ORDERED: ONDA4TAB11 PO (22:32)
[2019-02-14] MEDS ORDERED: ACHD5005 PO (22:32)
[2019-02-14] MEDS ORDERED: RX-ONDANSETRON 4 MG ODT (ZOFRAN) PPK #4 PO STA (22:38)
[2019-02-14] MEDS ORDERED: RX-HYDROCODONE/APAP 5/325 MG #4 TAB PK PO PRN (22:45)
[2019-02-14 23:20] VITALS: BP 122/55
== END 2019-02-14 23:20 | disposition home or self-care (01) ==
LOC: EDUNIT# 20:06 → ER 20:07
DX: K52.9 Noninfective gastroenteritis and colitis, unspecified (principal); E11.9 Type 2 diabetes mellitus without complications; I10 Essential (primary) hypertension; I25.10 Atherosclerotic heart disease of native coronary artery without angina pectoris; K21.9 Gastro-esophageal reflux disease without esophagitis; F41.9 Anxiety disorder, unspecified; G47.30 Sleep apnea, unspecified; D64.9 Anemia, unspecified; Z99.89 Dependence on other enabling machines and devices; Z95.5 Presence of coronary angioplasty implant and graft; Z91.14 Patient's other noncompliance with medication regimen; Z79.82 Long term (current) use of aspirin; Z79.84 Long term (current) use of oral hypoglycemic drugs
CPT/HCPCS: 36415; 74177; 80053; 81000; 83605; 85025; 85610; 85730; 87040; 87088; 96361; 96365; 96372; 96375

== ENCOUNTER 2019-08-22 09:50 | Outpatient (RCR) | payer MEDICARE, MEDICAID ==
[~2019-08-22 09:50] MED LIST changes: +FLUT30CR TP; -FLUT30CR10 TP; +ONDA4TAB11 PO; -TRAM50TA2 PO; +TRM50T PO
== END 2019-09-19 15:59 | disposition home or self-care (01) ==
PROVIDERS: ATTEND Physician Assistant
DX: M54.16 Radiculopathy, lumbar region (principal); M54.12 Radiculopathy, cervical region

== ENCOUNTER → 2020-03-13 | Outpatient (CLI) | payer MEDICARE, MEDICAID ==
--- NOTE | 2020-03-13 12:53 | Diagnostic Imaging Report ---
PROCEDURE: Pelvic comp/transvaginal sonogram. TECHNIQUE: Complete transabdominal and transvaginal pelvic ultrasound was performed. In addition, limited pelvic Doppler was performed. INDICATION: Pelvic and perineal pain. FINDINGS: Uterus measures 5.2 x 2.4 x 2.9 cm. No myometrial mass is identified. Endometrium is thin at 2 mm. Ovaries cannot be visualized. No adnexal mass or free fluid is detected. IMPRESSION: Nonvisualized ovaries. The study is otherwise unremarkable. Dictated by: Dictated on workstation # [id number]
== END ==
LOC: RAD 11:30
PROVIDERS: ATTEND Obstetrics & Gynecology
DX: R10.2 Pelvic and perineal pain (principal)
CPT/HCPCS: 76830; 76856

== ENCOUNTER → 2020-07-14 | Outpatient (CLI) | payer MEDICARE, MEDICAID ==
[~2020-07-14] MED LIST changes: +ESCI20TA39 PO; -ESCI20TA45 PO; -ISOS30TA3 PO; +ISOS30TA82 PO
== END ==
LOC: CARD 10:14
PROVIDERS: ATTEND Physician Assistant
DX: I11.9 Hypertensive heart disease without heart failure (principal); I35.1 Nonrheumatic aortic (valve) insufficiency; I25.10 Atherosclerotic heart disease of native coronary artery without angina pectoris
CPT/HCPCS: 93306

== ENCOUNTER 2020-07-22 05:34 | Outpatient (CLI) | payer MEDICARE, MEDICAID ==
[~2020-07-22] VITALS: Ht 157.5 cm; Wt 102.3 kg
[2020-07-22] MEDS ORDERED: MONT10TA21 PO (16:45)
[2020-07-22] MEDS ORDERED: TRAZ-227 PO (16:45)
[2020-07-22] MEDS ORDERED: INSU300I SQ (16:45)
[2020-07-22] MEDS ORDERED: LOSA100T3 PO (16:45)
[2020-07-22] MEDS ORDERED: CITA40TA19 PO (16:45)
[2020-07-22] MEDS ORDERED: GLIM4TAB5 PO (16:45)
[2020-07-22] MEDS ORDERED: CELE100C PO (16:45)
[2020-07-22] MEDS ORDERED: ALB0.5V INH (16:45)
[2020-07-22] MEDS ORDERED: IXEK80SY3 SQ (16:45)
[2020-07-22] MEDS ORDERED: VERA40TA2 PO (16:45)
== END 2020-07-23 13:40 | disposition home or self-care (01) ==
LOC: PREOP 05:34
PROVIDERS: ATTEND Orthopaedic Surgery
DX: Z01.818 Encounter for other preprocedural examination (principal)

== ENCOUNTER 2020-07-29 08:09 | Day surgery (SDC) | payer MEDICARE, MEDICAID ==
--- NOTE | 2020-07-23 07:05 | HISTORY AND PHYSICAL ---
DATE OF SERVICE: ADMISSION HISTORY AND PHYSICAL DATE OF ADMISSION: 07/29/2020. This will be for outpatient surgery for right knee arthroscopy on 07/29/2020. HISTORY OF PRESENT ILLNESS: The patient is a 59-year-old female with longstanding right knee pain. She underwent a right knee arthroscopy 10 years ago with good results. She does not currently desire total knee arthroplasty. She would like to proceed with arthroscopy as she is having increased pain, swelling, catching and locking. Due to functional impairment and failure to improve with conservative measures, the patient elected to proceed with surgical intervention. REVIEW OF SYSTEMS: No chest pain, no shortness of breath, no dysuria. RADIOGRAPHS: Reveal moderate medial and patellofemoral joint space narrowing. PAST MEDICAL HISTORY: Diabetes, depression, reflux, hyperlipidemia, hypertension, osteoporosis, sleep apnea and anemia, varicose veins, blurred vision, thrush, arthritis, hormone replacement, psoriasis, pancreatitis, psoriatic arthritis, constipation, diarrhea, neuropathy, coronary artery disease. PAST SURGICAL HISTORY: Cholecystectomy, tonsillectomy tarsal tunnel, abdominal herniorrhaphy, coronary stent, EGD, right knee arthroscopy. SOCIAL HISTORY: The patient denies alcohol and tobacco use. FAMILY HISTORY: Significant for thyroid disease, hypertension, lymphoma. PRIMARY CARE PROVIDER: Otto Dudley in [place]. MEDICATIONS: Hyzaar, metformin, doxepin, vitamin, Toujeo, Crestor, glimepiride, verapamil, Ultram, Linzess, trazodone, isosorbide, Xyzal, Celexa, Celebrex. ALLERGIES: LATEX. PHYSICAL EXAMINATION: GENERAL: The patient is well-developed, well-nourished, in no acute distress. HEENT: Normocephalic, atraumatic. Pupils are equal, round and reactive to light. Oropharynx is clear. NECK: Supple, no lymphadenopathy. LUNGS: Clear to auscultation bilaterally. HEART: Regular rate and rhythm. ABDOMEN: Soft, nontender, nondistended. EXTREMITIES: The right knee demonstrates a slight effusion. She is tender along medial joint line. She has pain medially with Kandy's. She has patellofemoral crepitus. No varus or valgus laxity. Negative anterior and posterior drawer. Range of motion is 0/2/130. 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 PLAN: Right knee arthroscopy with chondroplasty and partial meniscectomy. Risks, benefits, options, ramifications and recovery were discussed at length with the patient. She understands and wishes to proceed. Job ID: [id number] DocumentID: [id number] Dictated Date: 07/17/2020 12:51:46 Software Development Test Engineer Date: 07/17/2020 13:39:21 Dictated By: RADHA TORRES MD
[2020-07-29] VITALS (10 sets, daily range): BP systolic 118–183; BP diastolic 64–98
[~2020-07-29] VITALS: Ht 157 cm; Wt 102.3 kg
[~2020-07-29 08:09] MED LIST changes: +ALB0.5V INH; +CELE100C PO; +CITA40TA19 PO; +GLIM4TAB5 PO; +HYDROcodone/APAP 7.5 MG/325 MG (LORTAB, LORCET PLUS) TABLET PO PRN; +INSU300I SQ; +IXEK80SY3 SQ; +LOSA100T3 PO; +MONT10TA21 PO; +TRAZ-227 PO; +VERA40TA2 PO
[2020-07-29] MEDS ORDERED: LACTATED RINGERS 1,000 ML IV PRN (08:15)
[2020-07-29] MEDS ORDERED: ceFAZolin INJECTION 1,000 MG in WATER (STERILE) FOR INJECTION 10 ML IV ONE (08:15)
[2020-07-29] MEDS ORDERED: morphine PF (DURAMORPH) 10 MG/10 ML AMP ONE (08:18)
[2020-07-29] MEDS ORDERED: BUPIVACAINE 0.25% 30 ML (SENSORCAINE) VIAL ONE (08:18)
[2020-07-29] MEDS ORDERED: ONDANSETRON 4 MG/2 ML (SDV) Z0FRAN IV ONE (08:45)
[2020-07-29] MEDS ORDERED: FAMOTIDINE 20MG/2ML IV (PEPCID) IV ONE (08:45)
[2020-07-29] MEDS ORDERED: proPOfol 200 MG/20 ML (DIPRIVAN) VIAL IV ONE (09:09)
[2020-07-29] MEDS ORDERED: LIDOCAINE PF 2% 5 ML (XYLOCAINE) VIAL ONE (09:09)
[2020-07-29] MEDS ORDERED: ONDANSETRON 4 MG/2 ML (SDV) Z0FRAN ONE (09:09)
[2020-07-29] MEDS ORDERED: SEVOFLURANE (ULTANE) 15 ML INHAL SOLN ONE (09:09)
[2020-07-29] MEDS ORDERED: fentaNYL INJ 100 MCG/2 ML AMP ONE (09:10)
[2020-07-29] MEDS ORDERED: MIDAZOLAM 2 MG/2 ML (VERSED) VIAL ONE (09:10)
--- NOTE | 2020-07-29 09:19 | Progress Note-Pre Operative ---
Pre-Operative Progress Note H&P Reviewed The H&P was reviewed, patient examined and no changes noted. Date Seen by Provider: July 29, 2020 Time Seen by Provider: 09:07 Date H&P Reviewed: July 29, 2020 Time H&P Reviewed: 07:11 Pre-Operative Diagnosis: right knee medial meniscus tear and chondromalacia RADHA TORRES MD July 29, 2020 09:19
--- NOTE | 2020-07-29 09:21 | Progress Note-Post Operative ---
Post-Operative Progess Note Surgeon (s)/Radiology Equipment Servicer (s) Surgeon RADHA TORRES MD Radiology Equipment Servicer: Jay Mckeon Pre-Operative Diagnosis right knee medial meniscus tear and chondromalacia Post-Operative Diagnosis right knee medial and lateral meniscus tears and chondromalacia of the medial and lateral femoral condyle, lateral tibail plateau and patella Procedure & Operative Findings Date of Procedure 07/29/20 Procedure Performed/Findings right knee arthoscopic partial medial and lateral meniscectomies and chondroplasty of the medial and lateral femoral condyles, lateral tibial plateau and patella Anesthesia Type GETA Estimated Blood Loss Estimated blood loss (mL): minimal Specimens/Packing Specimens Removed none Packing: none RADHA TORRES MD July 29, 2020 09:21
[2020-07-29] MEDS: ONDANSETRON 4 MG/2 ML (SDV) Z0FRAN IVP PRN ×2 (10:28→10:34)
[2020-07-29] MEDS ORDERED: morphine INJ 10 MG/ML 1ML (SYR OR VIAL) IVP ONE (10:30)
[2020-07-29] MEDS ORDERED: HYDR-3817 PO (11:19)
--- NOTE | 2020-07-29 12:59 | Physical Therapy Ortho Eval ---
PT Orthopedic Evaluation Type of Surgery Knee Scope right side Prior Level of Function Current Living Status: Alone Locomotion (Upon Admit): Independent Established Durable Medical Eq: Front Wheeled Walker Subjective Subjective Patient in bed pre tx, agrees to PT, has significant unrated pain in right knee. Entry Into Home: Stairs With Railing Steps Into Home: 4 Motor Control Motor Control: Motor Control WNL ROM right knee flexion 85 degrees, extension +5 degrees Transfer SCALE: Activities may be completed with or without assistive devices. 5-Ikidrkzxuo-wxurmbe completes the activity by him/herself with no assistance from a helper. 5-Set-up or Clean-up Assistance-helper sets up or cleans up; patient completes activity. Ponce assists only prior to or following the activity. 4-Supervision or Touching Assistance-helper provides verbal cues and/or touchin g/steadying and/or contact guard assistance as patient completes activity. Assistance may be provided throughout the activity or intermittently. 3-Partial/Moderate Assistance-helper does LESS THAN HALF the effort. Ponce lifts, holds or supports trunk or limbs, but provides less than half the effort. 2-Substantial/Maximal Assistance-helper does MORE THAN HALF the effort. Ponce lifts or holds trunk or limbs and provides more than half the effort. 9-Elnvbwnll-oizvwm does ALL the effort. Patient does none of the effort to complete the activity. Or, the assistance of 2 or more helpers is required for the patient to complete the activity. If activity was not attempted, code reason: 7-Patient Refused. 9-Not Applicable-not attempted and the patient did not perform the activity before the current illness, exacerbation or injury. 10-Not Attempted due to Environmental Limitations-(lack of equipment, weather restraints, etc.). 88-Not Attempted due to Medical Conditions or Safety Concerns. Transfers (B, C, W/C) (QC): 4 Gait Gait Assistive Device: FWW Right Lower Extremity: Right Weight Bearing Status RLE: Weight Bearing/Tolerated Gait (QC): 4 Distance: 80' Summary/Comments Patient ambulated 80' with a rolling walker with SBA, also went up and down 1 step using a rolling walker with CGA and cues for foot placement. Patient has one handrail on her steps to enter her home, her daughter says she will be able to help her in, daughter educated on how to do that. Treatment Rendered Treatment: Therapeutic Exercises, Gait Train, Step Train Exercise Instruction: Quad Sets, Heel Slides, Ankle Pumps Assessment/Goals Goal Time Frame: 1 Visit Understands HEP: Yes Safe Ambulation: Yes Plan Treatment Plan: Discharge PT/Family Agrees to Plan: Yes Time Time In: 1130 Time Out: 1143 Total Billed Treatment Time: 13 Billed Treatment Time 1visyady OLIVERA 14' KARLA AVENDANO PT July 29, 2020 12:59
--- NOTE | 2020-07-29 14:53 | OPERATIVE REPORT ---
DATE OF SERVICE: 07/29/2020 PREOPERATIVE DIAGNOSES: 1. Right knee medial meniscus tear. 2. Right knee chondromalacia of patella. 3. Right knee chondromalacia of the medial femoral condyle. POSTOPERATIVE DIAGNOSES: 1. Right knee medial meniscus tear. 2. Right knee lateral meniscus tear. 3. Right knee chondromalacia of the medial femoral condyle. 4. Right knee chondromalacia of the lateral femoral condyle. 5. Right knee chondromalacia of the lateral tibial plateau. 6. Right knee chondromalacia of the patella. PROCEDURES PERFORMED: 1. Right knee arthroscopic partial medial meniscectomy. 2. Right knee arthroscopic partial lateral meniscectomy. 3. Right knee arthroscopic chondroplasty of the medial femoral condyle. 4. Right knee arthroscopic chondroplasty of the lateral femoral condyle. 5. Right knee arthroscopic chondroplasty of the lateral tibial plateau. 6. Right knee arthroscopic chondroplasty of the patella. SURGEON: Naga Torres MD. WATCH CASE POLISHER: Jay Mckeon, who assisted throughout the procedure and closed the incisions. ANESTHESIA: General endotracheal by Dr. Alex. TOURNIQUET TIME: Topical. ESTIMATED BLOOD LOSS: Minimal. DRAINS: None. COMPLICATIONS: None. POSTOPERATIVE PLAN: Routine arthroscopy protocol. The patient was transferred to the recovery room awake and stable condition. STATEMENT OF MEDICAL NECESSITY: The patient is a 59-year-old female with complaints of right knee pain, catching, locking and swelling. She was tender along the medial joint line. She had a large effusion. Radiographs revealed joint space narrowing of her medial and patellofemoral compartments, but the patient did not desire total knee arthroplasty. She understood that arthroscopy could help with her mechanical symptoms, but would not alleviate her arthritic symptoms. Due to progressive symptoms, the patient elected to proceed with surgical intervention. Examination under anesthesia revealed range of motion of 0/0/125 with negative Josi, negative anterior and posterior drawer. No varus valgus laxity, negative pivot shift. Arthroscopic findings of the patella demonstrated grade III chondral flap centrally in a 10 x 10 area. The trochlea demonstrated grade I chondral softening with no unstable chondral flaps. The medial and lateral gutters were clear. The ACL and PCL were intact. The lateral compartment demonstrated grade IV chondral flap on the anterior aspect of the femoral condyle in a 10 x 10 area with a grade III chondral flap with central portion of the tibial plateau in an 8 x 8 area and a degenerative tear of the posterior horn and body of the meniscus involving approximately one third of the posterior horn and body. The medial compartment demonstrated diffuse grade II chondral softening with no unstable chondral flaps of the tibial plateau with grade III chondral flaps of the central portion of the femoral condyle in a 10 x 10 area with surrounding grade III chondral flaps at the periphery. The medial meniscus demonstrated degenerative tear of the posterior horn and body involving approximately 20% of the posterior horn and body. DESCRIPTION OF PROCEDURE: After risks and benefits of the procedure were discussed and questions were answered, informed consent was signed and placed on chart, the operative site was confirmed in the preoperative holding area initialed by the surgeon. The patient was transferred to the operating room and after adequate levels of general endotracheal anesthetic were obtained, a timeout was called, confirming the operative site. Examination under anesthesia was performed with the above findings noted. The right lower extremity was prepped and draped in the usual sterile fashion. The knee joint was injected with 60 mL of fluid and a standard inferolateral portal was placed for the arthroscope under direct visualization and inferior medial portal was created. The menisci and cruciates were carefully probed with the above findings noted. The unstable chondral flaps on the patella were debrided with the shaver back to a stable edge. The scope was redirected into the lateral compartment, where the lateral meniscus tear was debrided with a shaver back to a stable edge. The unstable chondral flaps in the lateral tibial plateau and lateral femoral condyle were debrided with a shaver back to a stable edge. Scope was then redirected into the medial compartment and the unstable chondral flaps on the medial femoral condyle were debrided with a shaver back to a stable edge and the medial meniscus tear was debrided with a shaver back to a stable edge. This was carefully probed with no further tearing or instability noted. The knee was copiously irrigated. Port sites were closed with 4-0 nylon in septic fashion. Knee was injected with Duramorph. Portal sites were infiltrated with plain Marcaine and soft dressing was applied. The patient was transferred to the recovery room awake and in stable condition. Job ID: [id number] DocumentID: [id number] Dictated Date: 07/29/2020 10:15:30 Domestic Freight Forwarder Date: 07/29/2020 14:52:23 Dictated By: NAGA TORRES MD
== END 2020-07-29 12:10 ==
LOC: SDC 08:09
PROVIDERS: ATTEND Orthopaedic Surgery
DX: S83.241A Other tear of medial meniscus, current injury, right knee, initial encounter (principal); S83.281A Other tear of lateral meniscus, current injury, right knee, initial encounter; M22.41 Chondromalacia patellae, right knee; F32.9 Major depressive disorder, single episode, unspecified; K21.9 Gastro-esophageal reflux disease without esophagitis; I10 Essential (primary) hypertension; E78.5 Hyperlipidemia, unspecified; D64.9 Anemia, unspecified; G47.30 Sleep apnea, unspecified; I25.10 Atherosclerotic heart disease of native coronary artery without angina pectoris; E11.40 Type 2 diabetes mellitus with diabetic neuropathy, unspecified; Z79.899 Other long term (current) drug therapy
CPT/HCPCS: 82947; 87081

== ENCOUNTER → 2021-09-07 | Outpatient (CLI) | payer MEDICARE, MEDICAID ==
[~2021-09-07] MED LIST changes: -ETAN50DI2 SQ; +ETAN50SY SQ; +HYDR-3817 PO; -HYDROcodone/APAP 7.5 MG/325 MG (LORTAB, LORCET PLUS) TABLET PO PRN; -POTA99TA21 PO; +POTA99TA26 PO
== END ==
LOC: CARD 10:00
PROVIDERS: ATTEND Internal Medicine Cardiovascular Disease
DX: I11.9 Hypertensive heart disease without heart failure (principal); I35.1 Nonrheumatic aortic (valve) insufficiency; I25.10 Atherosclerotic heart disease of native coronary artery without angina pectoris
CPT/HCPCS: 93306

== ENCOUNTER → 2021-10-04 | Outpatient (CLI) | payer MEDICARE, MEDICAID ==
[~2021-10-04] VITALS: Ht 157 cm; Wt 104.0 kg
[~2021-10-04] MED LIST changes: +CATHETER FLUSH 10 ML SYR IVP PRN; +REGADENOSON 0.4 MG/5 ML SYR (LEXISCAN) IV ONE
[2021-10-04 08:47] LABS: ALBUMIN 4.1 GM/DL (3.2-4.5); BILIRUBIN,TOTAL 0.8 MG/DL (0.1-1.0); CALCIUM 10.4 MG/DL (8.5-10.1); CREATININE SERUM 0.75 MG/DL (0.60-1.30); POTASSIUM 4.6 MMOL/L (3.6-5.0); TOTAL PROTEIN 6.9 GM/DL (6.4-8.2)
[2021-10-04 09:25] VITALS: BP 133/60
[2021-10-04 09:33] VITALS: BP 128/57
--- NOTE | 2021-10-04 11:38 | Cardiology Stress Test Report ---
Stress Test Report Date of Procedure/Referring: Date of Procedure: Oct 04, 2021 PCP Veronica Dudley MD Admitting Physician Admitting Physician: Attending Physician: Gloria Alfaro MD Indications: CP Baseline Heart Rate: 74 Baseline Blood Pressure: Blood Pressure Systolic: 128 Blood Pressure Diastolic: 57 Baseline Vitals Vital Signs Date Time Temp Pulse Resp B/P (MAP) Pulse Ox O2 Delivery O2 Flow Rate FiO2 10/04/21 09:25 74 16 133/60 (84) 98 Room Air Baseline EKG: Baseline EKG: NSR Summary After explaining the procedure to the patient, she signed a consent and then brought to the stress nuclear laboratory. Patient received 0.4 mg Lexiscan for stress test, ECG, heart rate and blood pressure were monitored continuously. Resting and stress dose of radio tracer were injected, imaging was acquired and reviewed in short axis, horizontal long axis and vertical long axis views. TID: 1.19 SSS: 2 SDS: 2 EF: 58 1. Patient tolerated Lexiscan well 2. No significant ischemia or infarction on SPECT images 3. Normal left ventricular size, ejection fraction 58% Copy Copies To 1: [facility] [place] GLORIA ALFARO MD Oct 04, 2021 11:38
== END ==
LOC: CARD 08:30
PROVIDERS: ATTEND Internal Medicine Cardiovascular Disease
DX: I25.10 Atherosclerotic heart disease of native coronary artery without angina pectoris (principal); I10 Essential (primary) hypertension
CPT/HCPCS: 78452; 80053; 80061; 93017; A9502; 36415

== ENCOUNTER 2022-08-16 23:05 | Inpatient (IN) | payer MEDICARE, MEDICAID ==
[~2022-08-16] VITALS: Ht 157.5 cm; Wt 110.8 kg
[2022-08-16 23:05] VITALS: BP 169/79
[~2022-08-16 23:05] MED LIST changes: -CATHETER FLUSH 10 ML SYR IVP PRN; -LOSA100T3 PO; +LOSA100T4 PO; +MONT-47 PO; -MONT10TA21 PO; -REGADENOSON 0.4 MG/5 ML SYR (LEXISCAN) IV ONE
[2022-08-16] MEDS ORDERED: NITROGLYCERIN 2% OINT 1 GM UNIT DOSE PACKET TOP ONE (23:15)
[2022-08-16] MEDS ORDERED: ASPIRIN 81 MG CHEW (CHILDREN'S ASA) PO ONE (23:15)
[2022-08-16] MEDS ORDERED: NITROGLYCERIN 0.4 MG SL TABS BTL 25'S SL PRN (23:15)
[2022-08-16 23:34] LABS: BASOPHILS # (AUTO) 0.1 10^3/uL (0.0-0.1); BASOPHILS % (AUTO) 1 % (0-10); EOSINOPHILS # (AUTO) 0.4 10^3/uL (0.0-0.3); EOSINOPHILS % (AUTO) 4 % (0-10); HEMATOCRIT 38 % (35-52); HEMOGLOBIN 12.5 g/dL (11.5-16.0); LYMPHOCYTES # (AUTO) 3.6 10^3/uL (1.0-4.0); LYMPHOCYTES % (AUTO) 36 % (12-44); MEAN CORPUSCULAR HEMOGLOBIN 30 pg (25-34); MEAN CORPUSCULAR HGB CONC 33 g/dL (32-36); MEAN CORPUSCULAR VOLUME 91 fL (80-99); MEAN PLATELET VOLUME 10.3 fL (9.0-12.2); MONOCYTES # (AUTO) 0.8 10^3/uL (0.0-1.0); MONOCYTES % (AUTO) 8 % (0-12); NEUTROPHILS # (AUTO) 5.2 10^3/uL (1.8-7.8); NEUTROPHILS % (AUTO) 52 % (42-75); PLATELET COUNT 262 10^3/uL (130-400)
[2022-08-16 23:45] LABS: INR 0.9 (0.8-1.4); PROTHROMBIN TIME PATIENT 12.5 SEC (12.2-14.7)
[2022-08-16 23:47] LABS: FIBRIN DEGRADATION PRODUCTS 0.33 UG/ML (0.00-0.49)
[2022-08-16 23:52] LABS: ALANINE AMINOTRANSFERASE 19 U/L (0-55); ALBUMIN 4.2 GM/DL (3.2-4.5); ALKALINE PHOSPHATASE 66 U/L (40-136); AMYLASE 49 U/L (25-125); BILIRUBIN,TOTAL 0.5 MG/DL (0.1-1.0); BUN/CREATININE RATIO 18; CARBON DIOXIDE 21 MMOL/L (21-32); CHLORIDE 103 MMOL/L (98-107); CREATINE KINASE 36 U/L (29-168); CREATININE SERUM 0.98 MG/DL (0.60-1.30); GFR ESTIMATED 65; GLUCOSE 120 MG/DL (70-105); LIPASE 15 U/L (8-78); MAGNESIUM 1.7 MG/DL (1.6-2.4); POTASSIUM 4.4 MMOL/L (3.6-5.0); SODIUM 134 MMOL/L (135-145); TOTAL PROTEIN 6.9 GM/DL (6.4-8.2)
[2022-08-17] LABS: CREATINE KINASE MB 0.7 NG/ML (<6.6)
[2022-08-17] MEDS ORDERED: morphine PF (DURAMORPH) 10 MG/10 ML AMP IV ONE (00:45)
[2022-08-17] MEDS ORDERED: ENOXAPARIN 60 MG/0.6 ML (LOVENOX) SYR SC ONE (00:45)
[2022-08-17] MEDS ORDERED: morphine INJ 10 MG/ML 1ML (SYR OR VIAL) IVP STA (00:47)
--- NOTE | 2022-08-17 01:16 | ED Chest Pain ---
General Chief Complaint: Chest Pain Stated Complaint: CHEST PAIN Nursing Triage Note: PT TO ROOM 02 VIA [facility] WITH C/O CHEST PAIN STARTING AT 1999 TODAY. PT REPORTS HX OF [place]. Source: patient, old records History of Present Illness Date Seen by Provider: Aug 16, 2022 Time Seen by Provider: 23:05 Initial Comments PT ARRIVES VIA EMS FROM HOME--PT LIVES AT HOME BY HERSELF C/O CHEST PAIN PAIN BEGAN AROUND 1999 TONIGHT, WHILE SITTING PAIN IS IN CENTER OF HER CHEST, RADIATING TO LEFT SHOULDER AND LEFT JAW PAIN IS A SEVERE BURNING SENSATION AND RATES PAIN 10/10 C/O SHORTNESS OF BREATH C/O SWEATS C/O NAUSEA, NO VOMITING NO PALPITATIONS NO DIZZINESS OR SYNCOPE NO SWELLING IN LEGS/FEET OR PAIN IN CALVES PT TOOK A TOTAL OF 4 TRAMADOL, 2 TYLENOL AND AN EXTRA DOSE OF ISOSORBIDE BETWEEN 1999 AND 2129 TONIGHT WITHOUT RELIEF NO TREATMENT BY EMS PT IS ON 81 MG ASPIRIN, NO OTHER BLOOD THINNERS SHE DOES NOT HAVE NITROGLYCERINE AT HOME. SHE HAS HAD THIS SAME PAIN IN THE PAST AND HAS HAD A CARDIAC CATH WITH STENT X 1 IN 2012. SHE HAS HTN, HYPERLIPIDEMIA, AND IDDM PCP: [facility] INDUCTION COORDINATION ENGINEER: DR. SINGH Allergies and Home Medications Allergies Coded Allergies: latex (Verified Allergy, Mild, RASH, 07/29/20) Patient Home Medication List Home Medication List Reviewed: Yes Acetaminophen (Tylenol Extra Strength) 500 Mg Tablet, 1,000 MG PO Q8H PRN for PAIN-MILD (1-4), (Reported) Entered as Reported by: NICOLAS WALTON on 08/17/22 123 Last Action: Reviewed Acetaminophen/Diphenhydramine (Tylenol Pm Ex-Strength Caplet) 500 Mg-25 Mg Tablet, 2 EACH PO HS PRN for SLEEP, (Reported) Entered as Reported by: NICOLAS WALTON on 08/17/22 123 Last Action: Reviewed Aripiprazole (Aripiprazole) 5 Mg Tablet, 5 MG PO HS, (Reported) Entered as Reported by: NICOLAS WALTON on 08/17/22 123 Last Action: Reviewed Betamethasone/Propylene Glyc (Betamethasone Dp Aug 0.05% Crm) 0.05 % Cream..g., 1 APPLIC TOP BID PRN for PSORIASIS, (Reported) Entered as Reported by: NICOLAS WALTON on 08/17/221238 Last Action: Reviewed Diclofenac Sodium (Diclofenac Sodium) 75 Mg Tablet.dr, 75 MG PO BID, (Reported) Entered as Reported by: NICOLAS WALTON on 08/17/221238 Last Action: Reviewed Doxepin HCl (Doxepin HCl) 10 Mg Capsule, 10 MG PO HS, (Reported) Entered as Reported by: NICOLAS WALTON on 08/17/221238 Last Action: Reviewed Duloxetine HCl (Duloxetine HCl) 30 Mg Capsule.dr, 30 MG PO HS, (Reported) Entered as Reported by: NICOLAS WALTON on 08/17/221238 Last Action: Reviewed Ergocalciferol (Vitamin D2) (Vitamin D2) 1,250 Mcg (96350 Unit) Capsule, 1,250 MCG PO MONTHLY, (Reported) Entered as Reported by: NICOLAS WALTON on 08/17/221238 Last Action: Reviewed Gabapentin (Neurontin) 300 Mg Capsule, 300 MG PO TID, (Reported) Entered as Reported by: NICOLAS WALTON on 08/17/221238 Last Action: Reviewed Hydrocortisone (Hydrocortisone) 1 % Cream..g., 1 APPLIC TP Q6H PRN for ITCHING, (Reported) Entered as Reported by: NICOLAS WALTON on 08/17/22 124 Last Action: Reviewed Ibuprofen (Ibuprofen) 200 Mg Capsule, 400 MG PO Q8H PRN for PAIN-MILD (1-4), (Reported) Entered as Reported by: NICOLAS WALTON on 08/17/221238 Last Action: Reviewed Insulin Aspart (Novolog Flexpen) 100 Unit/Ml (3 Ml) Solution, 11 UNITS SC AC, (Reported) Entered as Reported by: NICOLAS WALTON on 08/17/221238 Last Action: Reviewed Insulin Glargine,Hum.rec.anlog (Toujeo Solostar) 300 Unit/Ml (1.5 Ml) Insuln.pen, 30 UNIT SQ HS, (Reported) Entered as Reported by: CHRISTINE MOORE on 07/22/20 1645 Last Action: Reviewed Isosorbide Mononitrate (Isosorbide Mononitrate ER) 30 Mg Tab.er.24h, 30 MG PO DAILY, (Reported) Entered as Reported by: JEFE ANDERSON on 05/20/16 1112 Last Action: Reviewed Ixekizumab (Taltz Autoinjector) 80 Mg/Ml Auto.injct, 80 MG SQ MONTHLY, (Reported) Entered as Reported by: NICOLAS WALTON on 08/17/221238 Last Action: Reviewed Ketoconazole (Ketoconazole) 2 % Shampoo, 1 APPLIC TOP WEEK, (Reported) Entered as Reported by: NICOLAS WALTON on 08/17/221238 Last Action: Reviewed Losartan Potassium (Losartan Potassium) 100 Mg Tablet, 100 MG PO DAILY, (Reported) Entered as Reported by: NICOLAS WALTON on 08/17/221238 Last Action: Reviewed Metformin HCl (Metformin HCl) 1,000 Mg Tablet, 1,000 MG PO BID, (Reported) Entered as Reported by: BEHZAD VASQUEZ on 04/06/16 1503 Last Action: Reviewed Metoprolol Succinate (Metoprolol Succinate) 50 Mg Tab.er.24h, 50 MG PO 1300, (Reported) Entered as Reported by: NICOLAS WALTON on 08/17/221238 Last Action: Reviewed Montelukast Sodium (Montelukast Sodium) 10 Mg Tablet, 10 MG PO DAILY, (Reported) Entered as Reported by: NICOLAS WALTON on 08/17/221238 Last Action: Reviewed Mv-Mn/Folic Acid/Calcium/Vit K (Women's 50 Plus Multivit Tab) 400 Mcg-500 Mg Calcium-20 Mcg Tablet, 1 EACH PO DAILY, (Reported) Entered as Reported by: NICOLAS WALTON on 08/17/221238 Last Action: Reviewed Olopatadine HCl (Olopatadine HCl) 0.2 % Drops, 1 DROP OU DAILY, (Reported) Entered as Reported by: NICOLAS WALTON on 08/17/221238 Last Action: Reviewed Ondansetron (Ondansetron Odt) 4 Mg Tab.rapdis, 4 MG SL Q8H PRN for NAUSEA/VOMITING-1ST LINE, (Reported) Entered as Reported by: NICOLAS WALTON on 08/17/221238 Last Action: Reviewed Pantoprazole Sodium (Pantoprazole Sodium) 40 Mg Tablet.dr, 40 MG PO DAILY PRN for HEARTBURN, (Reported) Entered as Reported by: NICOLAS WALTON on 6/14/23 1239 Last Action: Reviewed Rosuvastatin Calcium (Rosuvastatin Calcium) 5 Mg Tablet, 5 MG PO 1300, (Reported) Entered as Reported by: NICOLAS WALTON on 08/17/22 123 Last Action: Reviewed Tramadol HCl (Tramadol HCl) 50 Mg Tablet, 50 MG PO BID PRN for PAIN-MODERATE (5- 7), (Reported) Entered as Reported by: NICOLAS WALTON on 08/17/22 123 Last Action: Reviewed Ursodiol (Ursodiol) 250 Mg Tablet, 500 MG PO BID WITH MEALS, (Reported) Entered as Reported by: NICOLAS WALTON on 08/17/221238 Last Action: Reviewed Verapamil HCl (Verapamil HCl) 40 Mg Tablet, 40 MG PO 1800, (Reported) Entered as Reported by: CHRISTINE MOORE on 07/22/201644 Last Action: Reviewed Discontinued Medications Albuterol Sulfate (Albuterol Sulfate) 2.5 Mg/0.5 Ml Vial.neb, 2.5 MG INH DAILY, (Reported) Discontinued Reason: No Longer Taking Entered as Reported by: CHRISTINE MOORE on 07/22/201644 Last Action: Discontinued Celecoxib (Celebrex) 100 Mg Capsule, 100 MG PO DAILY, (Reported) Discontinued Reason: No Longer Taking Entered as Reported by: CHRISTINE MOORE on 07/22/201644 Last Action: Discontinued Citalopram Hydrobromide (Celexa) 40 Mg Tablet, 40 MG PO DAILY, (Reported) Discontinued Reason: No Longer Taking Entered as Reported by: CHRISTINE MOORE on 07/22/201644 Last Action: Discontinued Doxepin Hcl (Doxepin Hcl) 25 Mg Capsule, 10 MG PO DAILY, (Reported) Discontinued Reason: No Longer Taking Entered as Reported by: JOSR WATKINS on 07/11/12 1054 Last Action: Discontinued Glimepiride (Glimepiride) 4 Mg Tablet, 4 MG PO DAILY, (Reported) Discontinued Reason: No Longer Taking Entered as Reported by: CHRISTINE MOORE on 07/22/201644 Last Action: Discontinued Hydrocodone/Acetaminophen (Hydrocodone-Acetamin 7.5-325) 1 Each Tablet, 1 EACH PO Q4H PRN for PAIN-SEVERE (8-10) Discontinued Reason: No Longer Taking Prescribed by: TELLO GOODWIN on 07/29/20 1119 Last Action: Discontinued Ixekizumab (Taltz Syringe) 80 Mg/1 Ml Syringe, 80 MG SQ [id number], (Reported) Discontinued Reason: No Longer Taking Entered as Reported by: CHRISTINE MOORE on 07/22/201644 Last Action: Discontinued Losartan Potassium (Cozaar) 100 Mg Tablet, 100 MG PO DAILY, (Reported) Discontinued Reason: No Longer Taking Entered as Reported by: CHRISTINE MOORE on 07/22/201644 Last Action: Discontinued Montelukast Sodium (Singulair) 10 Mg Tablet, 10 MG PO DAILY, (Reported) Discontinued Reason: No Longer Taking Entered as Reported by: CHRISTINE MOORE on 07/22/201644 Last Action: Discontinued Multivitamins-Min/Fa/Ginkgo (One Daily Women's 50+ Tablet) 1 Each Tablet, 1 TAB PO DAILY, (Reported) Discontinued Reason: No Longer Taking Entered as Reported by: JOSR WATKINS on 07/11/12 1054 Last Action: Discontinued Ondansetron (Ondansetron Odt) 4 Mg Tab.rapdis, 4 MG PO Q6H PRN for NAUSEA/VOMITING Discontinued Reason: No Longer Taking Prescribed by: MARCUS DAVID on 02/14/19 2232 Last Action: Discontinued Rosuvastatin Calcium (Crestor) 5 Mg Tablet, 5 MG PO DAILY@1200, (Reported) Discontinued Reason: No Longer Taking Entered as Reported by: ZABRINA ASTORGA on 05/12/14 1652 Last Action: Discontinued Tramadol HCl (Tramadol HCl) 50 Mg Tablet, 50 MG PO Q8H Discontinued Reason: No Longer Taking Prescribed by: ZANE OTERO on 12/29/16 1737 Last Action: Discontinued Trazodone HCl (Trazodone HCl) 100 Mg Tablet, 100 MG PO HS PRN for INSOMNIA, (Reported) Discontinued Reason: No Longer Taking Entered as Reported by: CHRISTINE MOORE on 07/22/201644 Last Action: Discontinued Review of Systems Review of Systems Constitutional: see HPI, diaphoresis EENTM: See HPI Respiratory: See HPI, Shortness of Air Cardiovascular: See HPI, Chest Pain Gastrointestinal: See HPI; Denies Abdominal Pain; Nausea; Denies Vomiting Genitourinary: No Symptoms Reported Musculoskeletal: see HPI Skin: no symptoms reported Psychiatric/Neurological: No Symptoms Reported Endocrine: No Symptoms Reported Hematologic/Lymphatic: No Symptoms Reported Past Votxolp-Wnwwwp-Jymdpv Hx Patient Social History Tobacco Use?: No Smoking Status: Never a Smoker Smokeless Tobacco Frequency: Never a User Use of E-Cig and/or Vaping dev: No Use of E-Cig and/or Vaping Nayan: Never a User Substance use?: No Alcohol Use?: No Pt feels they are or have been: No Immunizations Up To Date Tetanus Booster (TDap): Unknown Seasonal Allergies Seasonal Allergies: Yes Past Medical History Surgeries: Yes (HERNIA REPAIR X3; TARSAL TUNNEL BILAT; BARIATRIC;CATH-STENT X 1) Abdominal, Adenoidectomy, Cardiac, Coronary Stent, Gallbladder, Orthopedic, Tonsillectomy Respiratory: Yes Asthma, Sleep Apnea Currently Using CPAP: No Cardiac: Yes (stent x1 TO LAD) Chronic Edema/Swelling, Coronary Artery Disease, Heart Attack, High Cholesterol, Hypertension Neurological: No 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 TORRES -CARDIAC CATH BY DR. SINGH: IN CONCLUSION: 1. The patient is known to have Promus Premier 2.75 x 20 mm in the mid LAD placed in 2012, which is patent with mild to moderate disease distally, nonobstructive disease. 2. Mild coronary artery disease otherwise. 3. Mildly elevated left ventricular end diastolic pressure. Physical Exam Vital Signs Vital Signs - First Documented 08/16/22 23:05 Temp 37.0 Pulse 69 Resp 19 B/P (MAP) 169/79 (109) Pulse Ox 96 O2 Delivery Room Air Capillary Refill : Less Than 3 Seconds Height, Weight, BMI Height: 5'2.00" Weight: 230lbs. 0.0oz. 104.646717hp; 44.00 BMI Method:Estimated General Appearance: No Apparent Distress, WD/WN, Obese HEENT: PERRL/EOMI Neck: Normal Inspection Respiratory: Chest Non Tender, Normal Breath Sounds, No Accessory Muscle Use, No Respiratory Distress Cardiovascular: Regular Rate, Rhythm, No Edema, No JVD, No Murmur, Normal P eripheral Pulses Gastrointestinal: Non Tender, Soft Extremity: Normal Capillary Refill, Normal Inspection, Normal Range of Motion, Non Tender, No Calf Tenderness, No Pedal Edema Neurologic/Psychiatric: Alert, Oriented x3, No Motor/Sensory Deficits, Normal Mood/Affect, supervisor II-XII Norm as Tested Skin: Normal Color, Warm/Dry Progress/Results/Core Measures Results/Orders Lab Results Laboratory Tests Test 08/16/22 23:24 Range/Units White Blood Count 10.0 4.3-11.0 10^3/uL Red Blood Count 4.20 3.80-5.11 10^6/uL Hemoglobin 12.5 11.5-16.0 g/dL Hematocrit 38 35-52 % Mean Corpuscular Volume 91 80-99 fL Mean Corpuscular Hemoglobin 30 25-34 pg Mean Corpuscular Hemoglobin Concent 33 32-36 g/dL Red Cell Distribution Width 14.0 10.0-14.5 % Platelet Count 262 130-400 10^3/uL Mean Platelet Volume 10.3 9.0-12.2 fL Immature Granulocyte % (Auto) 0 % Neutrophils (%) (Auto) 52 42-75 % Lymphocytes (%) (Auto) 36 12-44 % Monocytes (%) (Auto) 8 0-12 % Eosinophils (%) (Auto) 4 0-10 % Basophils (%) (Auto) 1 0-10 % Neutrophils # (Auto) 5.2 1.8-7.8 10^3/uL Lymphocytes # (Auto) 3.6 1.0-4.0 10^3/uL Monocytes # (Auto) 0.8 0.0-1.0 10^3/uL Eosinophils # (Auto) 0.4 H 0.0-0.3 10^3/uL Basophils # (Auto) 0.1 0.0-0.1 10^3/uL Immature Granulocyte # (Auto) 0.0 0.0-0.1 10^3/uL Prothrombin Time 12.5 12.2-14.7 SEC INR Comment 0.9 0.8-1.4 Activated Partial Thromboplast Time 30 24-35 SEC D-Dimer 0.33 0.00-0.49 UG/ML Sodium Level 134 L 135-145 MMOL/L Potassium Level 4.4 3.6-5.0 MMOL/L Chloride Level 103 98-107 MMOL/L Carbon Dioxide Level 21 21-32 MMOL/L Anion Gap 10 5-14 MMOL/L Blood Urea Nitrogen 18 7-18 MG/DL Creatinine 0.98 0.60-1.30 MG/DL Estimat Glomerular Filtration Rate 65 BUN/Creatinine Ratio 18 Glucose Level 120 H 70-105 MG/DL Calcium Level 10.0 8.5-10.1 MG/DL Corrected Calcium 9.8 8.5-10.1 MG/DL Magnesium Level 1.7 1.6-2.4 MG/DL Total Bilirubin 0.5 0.1-1.0 MG/DL Aspartate Amino Transf (AST/SGOT) 13 5-34 U/L Alanine Aminotransferase (ALT/SGPT) 19 0-55 U/L Alkaline Phosphatase 66 40-136 U/L Total Creatine Kinase 36 29-168 U/L Creatine Kinase MB 0.7 <6.6 NG/ML Myoglobin 40.7 10.0-92.0 NG/ML Troponin I < 0.028 <0.028 NG/ML B-Type Natriuretic Peptide 25.5 <100.0 PG/ML Total Protein 6.9 6.4-8.2 GM/DL Albumin 4.2 3.2-4.5 GM/DL Amylase Level 49 25-125 U/L Lipase 15 8-78 U/L My Orders Orders - CHARLY DUBON DO Chest 1 View, Ap/Pa Only (08/16/22 23:09) Ekg Tracing (08/16/22:09) Cbc With Automated Diff (08/16/22:09) Magnesium (08/16/22:09) Comprehensive Metabolic Panel (08/16/22:09) Myoglobin Serum (08/16/22:) Protime With Inr (08/16/22:) Partial Thromboplastin Time (08/16/22:) O2 (08/16/22:) Monitor-Rhythm Ecg Trace Only (08/16/22:) Ed Iv/Invasive Line Start (08/16/22:09) Creatine Kinase (6/13/23 23:09) Creatine Kinase Mb (08/16/22 23:09) Lipase (08/16/22 23:09) Amylase (08/16/22 23:09) Bnp [place] (08/16/22 23:09) Fibrin Degradation Products (08/16/22 23:09) Troponin I [place] (08/16/22 23:09) Aspirin Chewable Tablet (Baby Aspirin Ch (08/16/22 23:15) Nitroglycerin Ointment (Nitrobid Ointme (08/16/22 23:15) Enoxaparin Injection (Lovenox Injection) (08/17/22 00:45) Morphine Pf Inj (Duramorph Pf Inj) (08/17/22 00:45) Morphine Injection (Morphine Injection (08/17/22 00:47) Medications Given in ED Vital Signs/I&O 08/16/22 08/16/22 23:05 23:05 Temp 37.0 Pulse 69 Resp 19 B/P (MAP) 169/79 (109) Pulse Ox 96 O2 Delivery Room Air Room Air Blood Pressure Mean: 109 Progress Progress Note : Progress Note CHEST PAIN PROTOCOL INITIATED GIVEN: -ASPIRIN 324 MG -NITROPASTE 1" -MORPHINE 4 MG -LOVENOX 120 MG VITALS ON ARRIVAL: TEMP 37.0, BP 169/79, HR 69, RR 19, O2 SAT 96% ON ROOM AIR VITALS AT TIME OF ADMIT: BP 140/71, HR 70, RR 18, O2 SAT 95% ON 2L/NC PAIN DOWN TO 4/10 WITH NITROPASTE PAIN RESOLVED WITH MORPHINE EKG SHOWS ST DEPRESSION ANTERIOR/LATERALLY LABS INCLUDING CBC, CMP, AMYLASE/LIPASE, TROPONIN, BNP, PT/PTT/INR, D-DIMER ARE UNREMARKABLE CXR IS UNREMARKABLE REVIEWED PRIOR RECORDS INCLUDING ER VISITS, ADMITS/H&P'S/CONSULTS/DISCHARGE SUMMARIES, TESTS/PROCEDURES DISCUSSED TEST RESULTS AND NEED FOR ADMIT AND PT IS AGREEABLE TO PLAN Initial ECG Impression Date: Aug 16, 2022 Initial ECG Impression Time: 23:14 Initial ECG Rate: 69 Initial ECG Rhythm: Normal Sinus Initial ECG Intervals: Normal Initial ECG Impression: Nonspecific Changes (ST DEPRESSION ANTERIOR/LATERAL LEADS) Initial ECG Comparisson: Changed (ST DEPRESSION NOTED TODAY, OTHERWISE IS SIMLAR TO PREVIOUS) Comment INTERPRETED BY ME Diagnostic Imaging Comments CXR--NO ACUTE PROCESS, PENDING RADIOLOGIST REVIEW Reviewed: Reviewed by Me Departure Communication (Admissions) 34--SPOKE WITH DR. CATALAN, HOSPITALIST FOR [facility], ACCEPTS PT FOR ADMIT. 35--SPOKE WITH DR. SINHG, INDUCTION COORDINATION ENGINEER, RECOMMENDATIONS NOTED. Impression Primary Impression: Chest pain Additional Impressions: HTN (hypertension) IDDM (insulin dependent diabetes mellitus) HISTORY OF CAD WITH STENT Disposition: ADMITTED INPATIENT Condition: Improved Admissions Decision to Admit Reason: Admit from ER (General) Decision to Admit/Date: Aug 17, 2022 Time/Decision to Admit Time: 00:35 Departure-Patient Inst. Referrals: DENNISE BUSH MD (PCP/Family) Primary Care Physician CHARLY DUBON DO Aug 17, 2022 01:16
[2022-08-17] MEDS ORDERED: morphine INJ 4 MG/ML 1 ML (VIAL/SYRINGE) IV PRN (02:00)
[2022-08-17] MEDS ORDERED: ONDANSETRON 4 MG/2 ML (SDV) Z0FRAN IV PRN (02:00)
[2022-08-17] MEDS ORDERED: CATHETER FLUSH 10 ML SYR IVP PRN (02:00)
--- NOTE | 2022-08-17 03:04 | Tele-ICU Progress Note ---
Progress Note 61F with CAD s/p PCI with LAD stent 2012, HTN, HLD, IDDM presented with abrupt onset substernal chest pain with radiation to left shoulder and jaw, burning, 10/10, +SOB, +diaphoresis, +nausea. +vomiting. Pain is similar to when last stent was placed. In ED given ASA, nitropase, morphine and therapuetic lovenox. Pain improved to 4/10 after nitropaste and 0/10 after morphine. Troponin was negative, initial EKG with ST depressions in V4 and V5, resolved on repeat EKG about 3 hours later. - ACS: cardiology consulted, anticipate cath in AM. Therapuetic lovenox already given. If CP recurs, repeat nitro and morphine, EKG. Trend troponins. - IDDM: ISS Patient assessed via real time audiovisual communication device. CCT 7 min Focused Exam Height, Weight, BMI Height: 5'2.00" Weight: 230lbs. 0.0oz. 104.950852uo; 44.66 BMI Method:Estimated MARIYA DUKE MD Aug 17, 2022 03:04
[2022-08-17 05:09] LABS: BASOPHILS # (AUTO) 0.1 10^3/uL (0.0-0.1); BASOPHILS % (AUTO) 1 % (0-10); EOSINOPHILS # (AUTO) 0.2 10^3/uL (0.0-0.3); EOSINOPHILS % (AUTO) 2 % (0-10); HEMATOCRIT 36 % (35-52); HEMOGLOBIN 11.7 g/dL (11.5-16.0); LYMPHOCYTES # (AUTO) 2.8 10^3/uL (1.0-4.0); LYMPHOCYTES % (AUTO) 31 % (12-44); MEAN CORPUSCULAR HEMOGLOBIN 30 pg (25-34); MEAN CORPUSCULAR HGB CONC 32 g/dL (32-36); MEAN CORPUSCULAR VOLUME 92 fL (80-99); MEAN PLATELET VOLUME 10.8 fL (9.0-12.2); MONOCYTES # (AUTO) 0.4 10^3/uL (0.0-1.0); MONOCYTES % (AUTO) 4 % (0-12); NEUTROPHILS # (AUTO) 5.6 10^3/uL (1.8-7.8); NEUTROPHILS % (AUTO) 62 % (42-75); PLATELET COUNT 252 10^3/uL (130-400); WHITE BLOOD COUNT 9.1 10^3/uL (4.3-11.0)
[2022-08-17 05:24] LABS: ALBUMIN 3.9 GM/DL (3.2-4.5); BILIRUBIN,TOTAL 0.5 MG/DL (0.1-1.0); CALCIUM 9.6 MG/DL (8.5-10.1); CREATININE SERUM 0.87 MG/DL (0.60-1.30); MAGNESIUM 1.7 MG/DL (1.6-2.4); PHOSPHORUS 4.2 MG/DL (2.3-4.7); POTASSIUM 5.3 MMOL/L (3.6-5.0); TOTAL PROTEIN 6.4 GM/DL (6.4-8.2)
[2022-08-17] MEDS ORDERED: NS IV 500 ML 500 ML IV PRN (05:45)
[2022-08-17] MEDS: inSUlin ASPART (NovoLOG) 1 UNIT/0.01 ML (CHARGE PER UNIT) SC SCH ×3 (05:46→17:50)
--- NOTE | 2022-08-17 05:51 | History & Physical-Hospitalist ---
History of Present Illness HPI/Chief Complaint Chief complaint: Unstable angina HPI: This is a 61-year-old female with a history of CAD and stents who sees Dr. Paul on a regular basis who presented with unstable angina placed in the ICU and will have cardiology evaluate for cardiac catheterization versus stress test. Currently she is doing a lot better and less pain Source: patient Exam Limitations: no limitations Date Seen 08/17/22 Time Seen by a Provider: 08:00 Attending Physician Veronica Dudley MD PCP Admitting Physician: Missy Catalan DO Attending Physician: Missy Catalan DO Referring Physician Date of Admission Aug 17, 2022 at 01:14 Home Medications & Allergies Home Medications Reviewed patient Home Medication Reconciliation performed by pharmacy medication reconciliations marine services technician and/or nursing. Patients Allergies have been reviewed. Allergies Allergies Coded Allergies latex (Verified Allergy, Mild, RASH, 07/29/20) Past Edvtfoz-Gwjbum-Vuurzo Hx Patient Social History Marrital Status: single Employed/Student: retired Tobacco Use?: No Tobacco type used: Cigarettes Smoking Status: Former Smoker Smokeless Tobacco Frequency: Never a User Use of E-Cig and/or Vaping dev: Yes Use of E-Cig and/or Vaping Nayan: Never a User Substance use?: No Alcohol Use?: No Pt feels they are or have been: No Immunizations Up To Date Date of Influenza Vaccine: Nov 05, 2019 Date of Pneumonia Vaccine: Nov 04, 2018 Seasonal Allergies Seasonal Allergies: Yes Current Status Advance Directives: No Communicates: Verbally Primary Language: [place] Preferred Spoken Language: [place] Is interpretation needed?: No Sensory deficits: Vision impairment Additional sensory deficits: GLASSES IN RM Implanted or Applied Medical D: Stents Past Medical History Surgeries: Abdominal, Adenoidectomy, Cardiac, Coronary Stent, Gallbladder, Orthopedic, Tonsillectomy Asthma, Sleep Apnea Currently Using CPAP: No Chronic Edema/Swelling, Coronary Artery Disease, Heart Attack, High Cholesterol, Hypertension SURGICAL AIDE 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 TORRES -CARDIAC CATH BY DR. SINGH: IN CONCLUSION: 1. The patient is known to have Promus Premier 2.75 x 20 mm in the mid LAD placed in 2012, which is patent with mild to moderate disease distally, nonobstructive disease. 2. Mild coronary artery disease otherwise. 3. Mildly elevated left ventricular end diastolic pressure. Review of Systems Constitutional: see HPI, malaise, weakness EENTM: no symptoms reported Respiratory: no symptoms reported Cardiovascular: chest pain Gastrointestinal: no symptoms reported Genitourinary: no symptoms reported Musculoskeletal: no symptoms reported Skin: no symptoms reported Psychiatric/Neurological: No Symptoms Reported Physical Exam Physical Exam Vital Signs Vital Signs - First Documented 08/16/22 08/17/22 23:05 01:28 Temp 37.0 Pulse 69 Resp 19 B/P (MAP) 169/79 (109) Pulse Ox 96 O2 Delivery Room Air O2 Flow Rate 2.00 Capillary Refill : Less Than 3 Seconds Height, Weight, BMI Height: 5'2.00" Weight: 230lbs. 0.0oz. 104.276362jc; 44.66 BMI Method:Estimated General Appearance: No Apparent Distress, Chronically ill Eyes: Right Eye Normal Inspection, Right Eye PERRL HEENT: PERRL/EOMI, Normal ENT Inspection, Pharynx Normal, Moist Mucous Membranes Neck: Full Range of Motion, Normal Inspection, Non Tender Respiratory: Chest Non Tender, Lungs Clear, Normal Breath Sounds, No Accessory Muscle Use, No Respiratory Distress Cardiovascular: Regular Rate, Rhythm, No Edema, No Gallop, No JVD, No Murmur, Normal Peripheral Pulses Gastrointestinal: Normal Bowel Sounds, No Organomegaly, No Pulsatile Mass, Non Tender, Soft Back: Normal Inspection, No CVA Tenderness, No Vertebral Tenderness Extremity: Normal Capillary Refill, Normal Inspection, Normal Range of Motion, Non Tender, No Calf Tenderness, No Pedal Edema Neurologic/Psychiatric: Alert, Oriented x3, No Motor/Sensory Deficits, Depressed Affect Skin: Normal Color, Warm/Dry Lymphatic: No Adenopathy Results Results/Procedures Labs Laboratory Tests 08/16/22 23:24 08/17/22 04:16 Patient resulted labs reviewed. Assessment/Plan Admission Diagnosis Assessment: Unstable angina CAD previous stents Hypertension Hyperlipidemia Depression Plan: Supportive care Pain control Cardiac cath Admission Status: Inpatient Order (span 2 midnights) Reason for Inpatient Admission: unstable angina MISSY CATALAN DO Aug 17, 2022 05:51
[2022-08-17] MEDS ORDERED: MAGNESIUM 1 GM/100 ML IVPB 100 ML IV SCH (06:00)
[2022-08-17] MEDS ORDERED: KCL 20 MEQ TAB (K-DUR) PO SCH (06:00)
[2022-08-17] MEDS ORDERED: POTASSIUM CL 10MEQ/50ML IVPB 50 ML IV SCH (06:00)
[2022-08-17] MEDS ORDERED: MAGNESIUM 1 GM/100 ML IVPB 400 ML IV ONE (06:05)
[2022-08-17] MEDS: MAGNESIUM 1 GM/100 ML IVPB 100 ML IV SCH ×3 (06:14→08:11)
[2022-08-17] MEDS: NITROGLYCERIN 2% OINT 1 GM UNIT DOSE PACKET TOP SCH ×2 (06:14→12:35)
[2022-08-17] MEDS: CATHETER FLUSH 10 ML SYR IVP SCH ×2 (06:14→14:10)
[2022-08-17] MEDS ORDERED: NS IV 1000 ML 1,000 ML IV SCH ×2 (06:30→13:45)
[2022-08-17] MEDS ORDERED: NS IV 1000 ML 1,000 ML ONE (06:32)
--- NOTE | 2022-08-17 06:56 | Diagnostic Imaging Report ---
EXAMINATION: Chest 1 view HISTORY: Chest pain. COMPARISON: 01/21/2017. FINDINGS: The lung volumes are normal. No focal consolidation is seen. No large pleural effusion or pneumothorax is seen. The cardiomediastinal silhouette is normal in size and contour. No acute osseous abnormality is seen. IMPRESSION: 1. No acute pleuroparenchymal process. Dictated by: Dictated on workstation # [id number]
[2022-08-17] MEDS ORDERED: ASPIRIN E.C. 81 MG (ECOTRIN) TAB PO SCH (09:00)
[2022-08-17] MEDS ORDERED: ENOXAPARIN 120 MG/0.8 ML (LOVENOX) SQ SCH (09:00)
[2022-08-17] MEDS ORDERED: HEParin (CATH LAB) 2,000 ML IV ONE (09:42)
[2022-08-17] MEDS ORDERED: LIDOCAINE 1% INJ 20 ML VIAL ONE (09:42)
--- NOTE | 2022-08-17 10:26 | Consultation-Cardiology ---
HPI-Cardiology Cardiology Consultation Date of Consultation 08/17/22 Date of Admission Time Seen by Provider: 10:23 Indication: Chest pain HPI 61-year-old lady with history of coronary artery disease, hypertension and hyperlipidemia. Patient started to have chest pain yesterday afternoon dull in nature in the retrosternal area associated with shortness of breath and diaphoresis. Came into the emergency room, had minimal nondiagnostic EKG changes. Overnight reported improvement of the chest pain with the nitroglycerin. Had elevation in troponin. Still complaining of fatigue and loss of energy. Home Medications & Allergies Allergies: Coded Allergies: latex (Verified Allergy, Mild, RASH, 07/29/20) Home Medication List Reviewed: Yes [id number] Hx Patient Social History Marital Status: single Employed/Student: retired Smoking Status: Former Smoker 2nd Hand Smoke Exposure: No Recent Hopitalizations: No Alcohol Use?: No Immunizations Up To Date Tetanus Booster (TDap): Unknown Date of Pneumonia Vaccine: Nov 04, 2018 Date of Influenza Vaccine: Nov 05, 2019 Past Medical History Discussed below Family Medical History Significant Family History: No Pertinent Family Hx Review of Systems-General Review of Systems Constitutional: no symptoms reported, see HPI EENTM: see HPI, no symptoms reported Respiratory: no symptoms reported, see HPI, short of breath Cardiovascular: see HPI, chest pain; No edema, No Hx of Intervention, No palpi tations, No syncope, No vascular heart diseas, No other Gastrointestinal: no symptoms reported, see HPI Genitourinary: no symptoms reported, see HPI Musculoskeletal: no symptoms reported, see HPI Skin: no symptoms reported, see HPI Psychiatric/Neurological: No Symptoms Reported, See HPI Reviewed Test Results Reviewed Test Results Lab Laboratory Tests Test 08/16/22 23:24 08/17/22 04:16 Range/Units White Blood Count 10.0 9.1 4.3-11.0 10^3/uL Red Blood Count 4.20 3.94 3.80-5.11 10^6/uL Hemoglobin 12.5 11.7 11.5-16.0 g/dL Hematocrit 38 36 35-52 % Mean Corpuscular Volume 91 92 80-99 fL Mean Corpuscular Hemoglobin 30 30 25-34 pg Mean Corpuscular Hemoglobin Concent 33 32 32-36 g/dL Red Cell Distribution Width 14.0 14.2 10.0-14.5 % Platelet Count 262 252 130-400 10^3/uL Mean Platelet Volume 10.3 10.8 9.0-12.2 fL Immature Granulocyte % (Auto) 0 0 % Neutrophils (%) (Auto) 52 62 42-75 % Lymphocytes (%) (Auto) 36 31 12-44 % Monocytes (%) (Auto) 8 4 0-12 % Eosinophils (%) (Auto) 4 2 0-10 % Basophils (%) (Auto) 1 1 0-10 % Neutrophils # (Auto) 5.2 5.6 1.8-7.8 10^3/uL Lymphocytes # (Auto) 3.6 2.8 1.0-4.0 10^3/uL Monocytes # (Auto) 0.8 0.4 0.0-1.0 10^3/uL Eosinophils # (Auto) 0.4 H 0.2 0.0-0.3 10^3/uL Basophils # (Auto) 0.1 0.1 0.0-0.1 10^3/uL Immature Granulocyte # (Auto) 0.0 0.0 0.0-0.1 10^3/uL Prothrombin Time 12.5 12.2-14.7 SEC INR Comment 0.9 0.8-1.4 Activated Partial Thromboplast Time 30 24-35 SEC D-Dimer 0.33 0.00-0.49 UG/ML Sodium Level 134 L 132 L 135-145 MMOL/L Potassium Level 4.4 5.3 H 3.6-5.0 MMOL/L Chloride Level 103 102 98-107 MMOL/L Carbon Dioxide Level 21 22 21-32 MMOL/L Anion Gap 10 8 5-14 MMOL/L Blood Urea Nitrogen 18 20 H 7-18 MG/DL Creatinine 0.98 0.87 0.60-1.30 MG/DL Estimat Glomerular Filtration Rate 65 75 BUN/Creatinine Ratio 18 23 Glucose Level 120 H 165 H 70-105 MG/DL Calcium Level 10.0 9.6 8.5-10.1 MG/DL Corrected Calcium 9.8 9.7 8.5-10.1 MG/DL Magnesium Level 1.7 1.7 1.6-2.4 MG/DL Total Bilirubin 0.5 0.5 0.1-1.0 MG/DL Aspartate Amino Transf (AST/SGOT) 13 31 5-34 U/L Alanine Aminotransferase (ALT/SGPT) 19 18 0-55 U/L Alkaline Phosphatase 66 61 40-136 U/L Total Creatine Kinase 36 29-168 U/L Creatine Kinase MB 0.7 <6.6 NG/ML Myoglobin 40.7 10.0-92.0 NG/ML Troponin I < 0.028 2.932 *H <0.028 NG/ML B-Type Natriuretic Peptide 25.5 <100.0 PG/ML Total Protein 6.9 6.4 6.4-8.2 GM/DL Albumin 4.2 3.9 3.2-4.5 GM/DL Amylase Level 49 25-125 U/L Lipase 15 8-78 U/L Phosphorus Level 4.2 2.3-4.7 MG/DL Triglycerides Level 130 <150 MG/DL Cholesterol Level 126 < 200 MG/DL LDL Cholesterol Direct 61 1-129 MG/DL VLDL Cholesterol 26 5-40 MG/DL HDL Cholesterol 52 40-60 MG/DL Physical Exam Physical Exam Vital Signs Vital Signs - First Documented 08/16/22 08/17/22 23:05 01:28 Temp 37.0 Pulse 69 Resp 19 B/P (MAP) 169/79 (109) Pulse Ox 96 O2 Delivery Room Air O2 Flow Rate 2.00 Capillary Refill : Less Than 3 Seconds Height, Weight, BMI Height: 5'2.00" Weight: 230lbs. 0.0oz. 104.370037ph; 44.66 BMI Method:Estimated General Appearance: No Apparent Distress, WD/WN, Obese Eyes: Bilateral Eye Normal Inspection, Bilateral Eye PERRL, Bilateral Eye EOMI HEENT: PERRL/EOMI Neck: Normal Inspection Respiratory: Chest Non Tender, Normal Breath Sounds, No Accessory Muscle Use, No Respiratory Distress Cardiovascular: Regular Rate, Rhythm, No Edema, No JVD, No Murmur, Normal Peripheral Pulses Gastrointestinal: Non Tender, Soft Back: Normal Inspection, No CVA Tenderness, No Vertebral Tenderness Extremity: Normal Capillary Refill, Normal Inspection, Normal Range of Motion, Non Tender, No Calf Tenderness, No Pedal Edema Neurologic/Psychiatric: Alert, Oriented x3, No Motor/Sensory Deficits, Normal Mood/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 Had elevation in troponin. Chest pain responsive to nitroglycerin, had minimal nondiagnostic EKG changes Patient had extensive history of coronary artery disease, recommend cardiac catheterization possible PTCA Stress test done on October 04, 2021 no significant ischemia or infarction, stress score 2, SDS 2, ejection fraction 58% 2D echo was done in September 2021 with moderate LVH, normal ejection fraction 55 to 60%, moderate aortic regurgitation, PA pressure 30 to 35 mmHg Questionable Paroxysmal atrial fibrillation, patient is reporting that she had a transient episode of atrial fibrillation during the bariatric surgery, no further episodes were reported. Holter monitor done May 2018 revealed sinus rhythm with occasional APCs, PVCs.. Continue to monitor Coronary artery disease, History of Promus 2.75 x 20 mm drug-eluting stent to the proximal LAD July 11, 2012. Cardiac catheterization done October 2015 revealed patent stent with mild to moderate disease distally. Nonobstructive disease. Stress test done May 2018 revealed no ischemia or infarct. Claudication, lower extremities pain and erythema. improved. ABIs within normal limits. Improving at this time. Continue to monitor Hypertension, resume home medication monitor blood pressure Maintained on isosorbide 30 mg daily, hydrochlorothiazide 25 mg daily, losartan 100 mg daily. I will increase metoprolol ER to 50 mg daily Hyperlipidemia, Lipid profile done on August 16, 2022 showing total cholesterol 126, triglyceride 130, LDL 61, HDL 56. Continue to monitor Anxiety/depression Dyspnea on exertion-probably secondary to body habitus. Nonobstructive carotid artery stenosis-most recent ultrasound done in August 2021 continue to monitor Obesity-underwent bariatric surgery with Dr. Owen in [place], [place] in July 2017. 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 GLORIA SINGH MD Aug 17, 2022 10:26
--- NOTE | 2022-08-17 10:27 | Cardiac Procedure Note-CS/ASA ---
Pre-Procedure Note Pre-Op Procedure Note Date of Available H&P: Aug 17, 2022 Date H&P Reviewed: Aug 17, 2022 Time H&P Reviewed: History & Physical: H&P Reviewed, Patient Examed, No changes noted Pre-Operative Diagnosis: NSTMI Moderate Sedation PreProcedure Time 10: ASA Score 3 Airway Lungs Heart ASA score ASA 1: a normal healthy patient ASA 2: a patient with a mild systemic disease (mid diabetes, controlled hypertension, obesity ASA 3: a patient with a severe systemic disease that limits activity (angina, COPD, prior Myocardial infarction) ASA 4: a patient with an incapacitating disease that is a constant threat to life (CHF, renal failure) ASA 5: a moribund patient not expected to survive 24 hrs. (ruptured aneurysm) ASA 6: a declared brain- patient whose organs are being harvested. For emergent operations, add the letter E after the classification Mallampati Classification Grade 3 Sedation Plan Analgesia, Amnesia, Plan communicated to team members, Discussed options with patient/fam, Discussed risks with patient/fam The patient is an appropriate candidate to undergo the planned procedure, sedation, and anesthesia. The patient immediately re-assessed prior to indication. GLORIA SINGH MD Aug 17, 2022 10:27
--- NOTE | 2022-08-17 12:11 | Tele-ICU Progress Note ---
Subjective Date Seen by a Provider: Aug 17, 2022 Time Seen by a Provider: 12:11 Subjective/Events-last exam (Tele-ICU Physician , Progress Note ) Service provided via interactive audio and video telecommunications E-CARE system to a patient admitted to ICU bed in [facility]. Patient is seen today due to persistent need of ICU care Available chart/ vitals / labs / Images reviewed Video assessment done using teleICU camera, rest of exam as per RN Discussed with RN Events overnight : Afebrile hemodynamically stable Respiratory - I/O = Drips: Pressors- no Hospital course: A/P NSTEMI , h/o CAD -cardiac catheterization possible PTCA today - EF 2021 - 55 to 60%, moderate AR Mild pulm HTN -PA pressure 30 to 35 mmHg 2021 Mild hypoxia - 91% on RA - will reassess after cath cxr clear , in [facility] [employer] [place] - ? h/o asthma Anxiety/depression Obesity- -s/p bariatric surgery with Dr. Owen in [place] in July 2017. Lines : , (Central Line Necessity Reviewed) Pacheco: OG: Nutrition: po Analgesia: Anxiety/ delirium VTE Prophylaxis: jesus full dose en 08/17 Stress Ulcer Prophylaxis: Plans in collaboration with bedside consultants and IM MDs. Discussed with RN to reach out if any questions or concerns Case and care daily discussed on multidisciplinary rounds ( RN, PharmD, Toggle Press Operator , Respiratory Therapy, lunchroom worker ) A total of 10 minutes of critical care time was devoted to this patient today, required to treat and/or prevent further deterioration of critical care condition ( as above ) . I am remotely monitoring this patient from another state. I am unable to do the bedside exam, and history/physical and pertinent information is taken from other notes in the computer and bedside staff. Sepsis Event Evaluation Height, Weight, BMI Height: 5'2.00" Weight: 230lbs. 0.0oz. 104.007698ro; 44.66 BMI Method:Estimated Exam Exam Patient acknowledged, consented, and participated in this virtual visit which was conducted using real time audio/video Vital Signs Date Time Temp Pulse Resp B/P (MAP) Pulse Ox O2 Delivery O2 Flow Rate FiO2 08/17/22 12:00 67 18 96 Room Air 08/17/22 11:00 68 32 107/76 (86) 96 Room Air 08/17/22 10:00 68 16 131/66 (87) 91 Room Air 08/17/22 09:00 64 20 139/69 (92) 92 Room Air 08/17/22 08:00 Room Air 08/17/22 08:00 72 20 146/87 (106) 97 Room Air 08/17/22 07:53 36.1 08/17/22 07:00 62 08/17/22 07:00 62 127/60 (82) 96 Nasal Cannula 2.00 08/17/22 06:00 63 122/65 (84) 96 Nasal Cannula 2.00 08/17/22 05:00 65 122/63 (89) 97 Nasal Cannula 2.00 08/17/22 04:00 63 119/63 (78) 96 Nasal Cannula 2.00 08/17/22 04:00 96 Nasal Cannula 2.00 08/17/22 03:55 61 108/54 (72) 95 Nasal Cannula 2.00 08/17/22 03:45 63 92/45 (58) 94 Nasal Cannula 2.00 08/17/22 03:30 64 110/56 (73) 95 Nasal Cannula 2.00 08/17/22 03:15 64 110/58 (73) 95 Nasal Cannula 2.00 08/17/22 03:00 65 120/60 (79) 94 Nasal Cannula 2.00 08/17/22 02:45 66 122/60 (80) 95 Nasal Cannula 2.00 08/17/22 02:30 66 95 Nasal Cannula 2.00 08/17/22 02:15 67 16 94 Nasal Cannula 2.00 08/17/22 02:02 95 Nasal Cannula 2.00 08/17/22 02:00 65 15 120/56 (77) 96 Nasal Cannula 2.00 08/17/22 01:45 65 130/60 (87) 98 Nasal Cannula 2.00 08/17/22 01:32 69 08/17/22 01:28 35.6 70 140/71 (94) 95 Nasal Cannula 2.00 08/16/22 23:05 37.0 69 19 169/79 (109) Room Air 08/16/22 23:05 96 Room Air I & O 08/17/22 07:00 Intake Total 0 ml Output Total 175 ml Balance -175 ml Height & Weight Height: 5'2.00" Weight: 230lbs. 0.0oz. 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
[2022-08-17] MEDS ORDERED: PANT40TA52 PO (12:39)
[2022-08-17] MEDS ORDERED: ERGO1250 PO (12:39)
[2022-08-17] MEDS ORDERED: URSO250T12 PO (12:39)
[2022-08-17] MEDS ORDERED: ROSU5TAB13 PO (12:39)
[2022-08-17] MEDS ORDERED: BETA15CR14 TOP (12:39)
[2022-08-17] MEDS ORDERED: IBUP-2185 PO (12:39)
[2022-08-17] MEDS ORDERED: GABA300C PO (12:39)
[2022-08-17] MEDS ORDERED: ARIP5TAB57 PO (12:39)
[2022-08-17] MEDS ORDERED: MV-M1TAB57 PO (12:39)
[2022-08-17] MEDS ORDERED: IXEK80AU SQ (12:39)
[2022-08-17] MEDS ORDERED: DULO30CA49 PO (12:39)
[2022-08-17] MEDS ORDERED: DOXE10CA29 PO (12:39)
[2022-08-17] MEDS ORDERED: ACET-3075 PO (12:39)
[2022-08-17] MEDS ORDERED: INSU100I14 SC (12:39)
[2022-08-17] MEDS ORDERED: MONT-40 PO (12:39)
[2022-08-17] MEDS ORDERED: OLOP2.5D16 OU (12:39)
[2022-08-17] MEDS ORDERED: LOSA100T58 PO (12:39)
[2022-08-17] MEDS ORDERED: TRAM50TA3 PO (12:39)
[2022-08-17] MEDS ORDERED: DICL75TA2 PO (12:39)
[2022-08-17] MEDS ORDERED: ONDA4TAB11 SL (12:39)
[2022-08-17] MEDS ORDERED: ACET-2267 PO (12:39)
[2022-08-17] MEDS ORDERED: METO50TA7 PO (12:39)
[2022-08-17] MEDS ORDERED: KETO120S13 TOP (12:39)
[2022-08-17] MEDS ORDERED: HYDR453. TP (12:40)
[2022-08-17] MEDS ORDERED: fentaNYL INJ 100 MCG/2 ML AMP ONE (12:53)
[2022-08-17] MEDS ORDERED: MIDAZOLAM 5 MG/5 ML (VERSED) VIAL ONE (12:54)
[2022-08-17] MEDS ORDERED: ONDANSETRON 4 MG/2 ML (SDV) Z0FRAN ONE (13:21)
--- NOTE | 2022-08-17 13:37 | Cardiac Cath Report ---
Cardiac Cath Report Physician (s)/Relief Docking Master (s) Physician GLORIA SINGH MD Pre-Procedure Diagnosis Pre-Procedure Diagnosis: NSTMI Post-Procedure Note Procedure Start Date: Aug 17, 2022 Procedure Start Time: 13:34 Name of Procedure: Left heart catheterization Findings/Procedure Note PROCEDURE NOTE: 61-year-old lady with chest pain and coronary artery disease, had elevation in troponin, cardiac catheterization was advised. After explaining the procedure to the patient, all pros and cons were explained, all questions were answered. The patient signed the consent and then she was placed in the cardiac catheterization laboratory. Groin was prepped in SL fashion local anesthesia was used. Sheath placed in the right femoral artery. Layne' right and left catheter were used to access the coronary system. [facility] right catheter was prolapsed to the left ventricular cavity, pressure was measured, pullback LV to aorta was done. At the end of the procedure the sheath was removed. Closure device was deployed FINDINGS: Hemodynamics LV 116/16, end-diastolic pressure of 16 Aorta 136/62 mean of 95 ANATOMY: Left Main is free of obstructive disease Left Anterior Descending has a patent stent known to be 2.75 mm stent in the proximal LAD otherwise no significant obstructive disease Left Circumflex is moderate in size with no obstructive disease Ramus intermedius is moderate in size with no obstructive disease Right Coronary Artery is dominant artery with no obstructive disease LV Gram was not done, pressure was measured CONCLUSION: Patent stent in the proximal LAD, otherwise no significant obstructive disease, small vessel disease Elevated troponin is due to small vessel disease Normal left ventricular end-diastolic pressure DISCUSSION AND RECOMMENDATION: Medical therapy is recommended no intervention is needed Anesthesia Type: Conscious Sedation (15 ml) Estimated blood loss (mL): 10 ml Contrast Amount: 32 ml Total Radiation Dose: 391 mGy Post-Procedure Diagnosis Post-operative diagnosis: Non-ST elevation myocardial infarction Coronary artery disease Hypertension Hyperlipidemia GLORIA SINGH MD Aug 17, 2022 13:37
[2022-08-17] MEDS ORDERED: PATIENT MAY USE OWN MEDS, ALL PO SCH (13:45)
--- NOTE | 2022-08-17 13:51 | Discharge Inst-Post CATH ---
Discharge Inst-CATH/EP Problems Reviewed?: Yes Post Cardiac Cath/EP D/C Inst Follow Up/Plan Appointment with Dr. Alfaro's office in 2 to 4 weeks <b>CARDIAC CATH/EP PROCEDURE DISCHARGE INSTRUCTIONS</b> ACTIVITY * Go Home directly and rest. * Limit activity of the leg (or wrist if it was used) for 7 days including aer obics, swimming, jogging, bicycling, etc. * Restrict stair-climbing for 7 days if possible, if not, climb up with your non-cath leg, then bring together on the same step. * Avoid lifting, pushing, pulling or excessive movement of the affected extremi ty for 7 days. * Customary sexual activity may be resumed after 2 days-use caution not to use a position that strains or causes pain to the affected extremity. * No driving for 24 hours. * NO SMOKING. * Avoid straining for bowel movements for 7 days. * Gentle walking on level ground is allowed. * Returning to work will depend on the type of procedure and the results. Your doctor will discuss this with you. CALL YOUR DOCTOR FOR ANY OF THE FOLLOWING: *If bleeding from the puncture site occurs- Apply gentle pressure to site with clean cloth and call your doctor or EMS. * If a knot or lump forms under the skin, increases in size, or causes pain. * If bruising appears to be worsening or moving further down your leg instead of disappearing. * Temperature above 101 F. CARE OF YOUR GROIN INCISION; * Bruising or purple discoloration of the skin near the puncture site is common. * You may shower only, no bathtub bathing for 5 days. Be careful to avoid slipping as your leg may feel stiff. * If a closure device was used on your femoral artery, please see the attached guide regarding care of the device and your leg. * Leave dressing on FOR 24 hours. CARE OF YOUR WRIST INCISION; * Bruising or purple discoloration of the skin near the puncture site is common. * You may shower. * DO NOT submerge wrist. * Leave dressing on FOR 24 hours. GLORIA ALFARO MD Aug 17, 2022 13:51
--- NOTE | 2022-08-17 17:27 | Discharge Summary ---
Discharge Summary Hospital Course Was the Problem List Reviewed?: Yes Problems/Dx: (1) Chest pain Status: Acute Hospital Course Date of Admission: Aug 17, 2022 at 01:14 Admission Diagnosis : Family Physician/Provider: Veronica Dudley MD Date of Discharge: 08/17/22 Discharge Diagnosis: [ ] Hospital Course: Short course after presenting with chest pain underwent cardiac cath showing no need for intervention so she was discharged home. Labs and Pending Lab Test: Laboratory Tests 08/16/22 23:24: White Blood Count 10.0, Red Blood Count 4.20, Hemoglobin 12.5, Hematocrit 38, Mean Corpuscular Volume 91, Mean Corpuscular Hemoglobin 30, Mean Corpuscular Hemoglobin Concent 33, Red Cell Distribution Width 14.0, Platelet Count 262, Mean Platelet Volume 10.3, Immature Granulocyte % (Auto) 0, Neutrophils (%) (Auto) 52, Lymphocytes (%) (Auto) 36, Monocytes (%) (Auto) 8, Eosinophils (%) (Auto) 4, Basophils (%) (Auto) 1, Neutrophils # (Auto) 5.2, Lymphocytes # (Auto) 3.6, Monocytes # (Auto) 0.8, Eosinophils # (Auto) 0.4H, Basophils # (Auto) 0.1, Immature Granulocyte # (Auto) 0.0, Prothrombin Time 12.5, INR Comment 0.9, Activated Partial Thromboplast Time 30, D-Dimer 0.33, Sodium Level 134L, Potassium Level 4.4, Chloride Level 103, Carbon Dioxide Level 21, Anion Gap 10, Blood Urea Nitrogen 18, Creatinine 0.98, Estimat Glomerular Filtration Rate 65, BUN/Creatinine Ratio 18, Glucose Level 120H, Calcium Level 10.0, Corrected Calcium 9.8, Magnesium Level 1.7, Total Bilirubin 0.5, Aspartate Amino Transf (AST/SGOT) 13, Alanine Aminotransferase (ALT/SGPT) 19, Alkaline Phosphatase 66, Total Creatine Kinase 36, Creatine Kinase MB 0.7, Myoglobin 40.7, Troponin I < 0.028, B-Type Natriuretic Peptide 25.5, Total Protein 6.9, Albumin 4.2, Amylase Level 49, Lipase 15 08/17/22 04:16: White Blood Count 9.1, Red Blood Count 3.94, Hemoglobin 11.7, Hematocrit 36, Mean Corpuscular Volume 92, Mean Corpuscular Hemoglobin 30, Mean Corpuscular Hemoglobin Concent 32, Red Cell Distribution Width 14.2, Platelet Count 252, Mean Platelet Volume 10.8, Immature Granulocyte % (Auto) 0, Neutrophils (%) (Auto) 62, Lymphocytes (%) (Auto) 31, Monocytes (%) (Auto) 4, Eosinophils (%) (Auto) 2, Basophils (%) (Auto) 1, Neutrophils # (Auto) 5.6, Lymphocytes # (Auto) 2.8, Monocytes # (Auto) 0.4, Eosinophils # (Auto) 0.2, Basophils # (Auto) 0.1, Immature Granulocyte # (Auto) 0.0, Sodium Level 132L, Potassium Level 5.3H, Chloride Level 102, Carbon Dioxide Level 22, Anion Gap 8, Blood Urea Nitrogen 20H, Creatinine 0.87, Estimat Glomerular Filtration Rate 75, BUN/Creatinine Ratio 23, Glucose Level 165H, Calcium Level 9.6, Corrected Calcium 9.7, Magnesium Level 1.7, Total Bilirubin 0.5, Aspartate Amino Transf (AST/SGOT) 31, Alanine Aminotransferase (ALT/SGPT) 18, Alkaline Phosphatase 61, Troponin I 2.932*H, Total Protein 6.4, Albumin 3.9, Phosphorus Level 4.2, Triglycerides Level 130, Cholesterol Level 126, LDL Cholesterol Direct 61, VLDL Cholesterol 26, HDL Cholesterol 52 Home Meds Active Reported Hydrocortisone 1 % Cream..g. 1 Applic TP Q6H PRN Tylenol Pm Ex-Strength Caplet (Acetaminophen/Diphenhydramine) 500 Mg-25 Mg Tablet 2 Each PO HS PRN Tylenol Extra Strength (Acetaminophen) 500 Mg Tablet 1,000 Mg PO Q8H PRN Ibuprofen 200 Mg Capsule 400 Mg PO Q8H PRN Women's 50 Plus Multivit Tab (Mv-Mn/Folic Acid/Calcium/Vit K) 400 Mcg-500 Mg Calcium-20 Mcg Tablet 1 Each PO DAILY Vitamin D2 (Ergocalciferol (Vitamin D2)) 1,250 Mcg (46398 Unit) Capsule 1,250 Mcg PO MONTHLY Ketoconazole 2 % Shampoo 1 Applic TOP WEEK Pantoprazole Sodium 40 Mg Tablet.dr 40 Mg PO DAILY PRN Rosuvastatin Calcium 5 Mg Tablet 5 Mg PO 1300 Montelukast Sodium 10 Mg Tablet 10 Mg PO DAILY Diclofenac Sodium 75 Mg Tablet.dr 75 Mg PO BID Aripiprazole 5 Mg Tablet 5 Mg PO HS Duloxetine HCl 30 Mg Capsule.dr 30 Mg PO HS Ondansetron Odt (Ondansetron) 4 Mg Tab.rapdis 4 Mg SL Q8H PRN Doxepin HCl 10 Mg Capsule 10 Mg PO HS Ursodiol 250 Mg Tablet 500 Mg PO BID WITH MEALS TAKES 2 (250MG) CAPS Neurontin (Gabapentin) 300 Mg Capsule 300 Mg PO TID Metoprolol Succinate 50 Mg Tab.er.24h 50 Mg PO 1300 Novolog Flexpen (Insulin Aspart) 100 Unit/Ml (3 Ml) Solution 11 Units SC AC Losartan Potassium 100 Mg Tablet 100 Mg PO DAILY Olopatadine HCl 0.2 % Drops 1 Drop OU DAILY Tramadol HCl 50 Mg Tablet 50 Mg PO BID PRN Betamethasone Dp Aug 0.05% Crm (Betamethasone/Propylene Glyc) 0.05 % Cream..g. 1 Applic TOP BID PRN Taltz Autoinjector (Ixekizumab) 80 Mg/Ml Auto.injct 80 Mg SQ MONTHLY Toujeo Solostar (Insulin Glargine,Hum.rec.anlog) 300 Unit/Ml (1.5 Ml) Insuln.pen 30 Unit SQ HS Verapamil HCl 40 Mg Tablet 40 Mg PO 1800 Isosorbide Mononitrate ER (Isosorbide Mononitrate) 30 Mg Tab.er.24h 30 Mg PO DAILY Metformin HCl 1,000 Mg Tablet 1,000 Mg PO BID Assessment/Pt Instructions PCP in 1 week Discharge Planning: <30 minutes discharge planning Discharge Physical Examination Vital Signs Vital Signs Date Time Temp Pulse Resp B/P (MAP) Pulse Ox O2 Delivery O2 Flow Rate FiO2 08/17/22 16:00 Room Air 08/17/22 16:00 72 13 114/49 (70) 98 08/17/22 16:00 36.3 2.00 General Appearance: No Apparent Distress, WD/WN Allergies: Coded Allergies: latex (Verified Allergy, Mild, RASH, 07/29/20) Discharge Summary Date of Admission Aug 17, 2022 at 01:14 Date of Discharge Discharge Date: Aug 17, 2022 Discharge Time: 1600 JESSICA CATALAN DO Aug 17, 2022 17:27
== END 2022-08-17 18:15 | disposition home or self-care (01) | DRG 281 ==
LOC: EDUNIT# 23:05 → ER 23:09 → ICU 08-17 01:14
PROVIDERS: ADMIT Internal Medicine; ATTEND Internal Medicine
PROC: 4A023N7 Measurement of Cardiac Sampling and Pressure, Left Heart, Percutaneous Approach (ICD-10-PCS; principal; 2022-08-17)
PROC: B2111ZZ Fluoroscopy of Multiple Coronary Arteries using Low Osmolar Contrast (ICD-10-PCS; 2022-08-17)
DX: I21.4 Non-ST elevation (NSTEMI) myocardial infarction (principal); L03.90 Cellulitis, unspecified; Z68.41 Body mass index [BMI] 40.0-44.9, adult; I25.110 Atherosclerotic heart disease of native coronary artery with unstable angina pectoris; I10 Essential (primary) hypertension; I35.1 Nonrheumatic aortic (valve) insufficiency; I48.0 Paroxysmal atrial fibrillation; E66.9 Obesity, unspecified; E78.00 Pure hypercholesterolemia, unspecified; E11.9 Type 2 diabetes mellitus without complications; I27.20 Pulmonary hypertension, unspecified; H54.7 Unspecified visual loss; G47.30 Sleep apnea, unspecified; K21.9 Gastro-esophageal reflux disease without esophagitis; M19.90 Unspecified osteoarthritis, unspecified site; H40.9 Unspecified glaucoma; F41.9 Anxiety disorder, unspecified; F32.A Depression, unspecified; D64.9 Anemia, unspecified; I25.2 Old myocardial infarction; Z87.891 Personal history of nicotine dependence; Z95.5 Presence of coronary angioplasty implant and graft; Z79.82 Long term (current) use of aspirin; Z79.4 Long term (current) use of insulin; Z79.1 Long term (current) use of non-steroidal anti-inflammatories (NSAID)
CPT/HCPCS: 36415; 71045; 80053; 80061; 82150; 82550; 82553; 82947; 83690; 83735; 83874; 83880; 84100; 84484; 85025; 85379; 85610; 85730; 87081; 93005; 93041; 93458

== ENCOUNTER → 2022-12-14 | Outpatient (CLI) | payer MEDICARE, MEDICAID ==
[~2022-12-14] MED LIST changes: +ACET-2267 PO; +ACET-3075 PO; +ARIP5TAB57 PO; +BETA15CR14 TOP; +DICL75TA2 PO; +DOXE10CA29 PO; +DULO30CA49 PO; +ERGO1250 PO; +GABA300C PO; +HYDR453. TP; +IBUP-2185 PO; +INSU100I14 SC; +IXEK80AU SQ; +KETO120S13 TOP; +LOSA-417 PO; -LOSA100T4 PO; +LOSA100T58 PO; +METO50TA7 PO; +MONT-40 PO; +MV-M1TAB57 PO; +OLOP2.5D16 OU; +ONDA4TAB11 SL; +PANT40TA52 PO; +ROSU5TAB13 PO; +TRAM50TA3 PO; +URSO250T12 PO
--- NOTE | 2022-12-14 16:16 | Diagnostic Imaging Report ---
PROCEDURE: Pelvic complete, transabdominal and transvaginal sonogram. Limited pelvic doppler. TECHNIQUE: Multiple real-time grayscale images were obtained of the pelvis in various projections transabdominally and transvaginally. Limited pelvic duplex images were obtained. HISTORY: Post menopausal bleeding COMPARISON: 03/13/2020 FINDINGS: Uterus: The uterus is retroverted and measures 4.8 x 2.2 x 2.8 cm. The myometrium is homogeneous without fibroids. Endometrium: The endometrium is nonvisualized. Adnexa: Right ovary is nonvisualized. Left ovary measures 1.0 x 0.9 x 1.0 cm, has a normal appearance. There is normal Doppler flow. Other: There is no free fluid within the pelvis. IMPRESSION: 1. Unremarkable appearance of the visualized pelvis. Dictated by: Dictated on workstation # [id number]
== END ==
LOC: RAD 13:52
PROVIDERS: ATTEND Nurse Practitioner Women's Health
DX: N95.0 Postmenopausal bleeding (principal)
CPT/HCPCS: 76830; 76856